=== PATIENT | male | born 1970 | race Caucasian/White ===

== ENCOUNTER 2018-06-26 07:59 | Inpatient (IN) | payer MEDICAID ==
[2018-06-26] VITALS (8 sets, daily range): BP systolic 118–140; BP diastolic 78–90
[~2018-06-26] VITALS: Ht 170.2 cm; Wt 72.6 kg
--- NOTE | 2018-06-26 08:00 | NUR ---
BIB RA 102; ABD PAIN X 30 MIN. NOTED ROSARIO, IN DISTRESS, PALE IN COLOR. MD AT BS FOR EVAL. IV ACCESS REPAIRER HAIRSPRING. BLOOD DRAWN FOR LABS. SAFETY AND COMFORT MEASURES PROVIDED. WILL MONITOR.
--- NOTE | 2018-06-26 08:05 | NUR ---
PT MEDICATED ORDERED.
[2018-06-26] MEDS ORDERED: KETOROLAC TROMETHAMINE 15 MG/ML VIAL ONE (08:06)
[2018-06-26] MEDS ORDERED: HYDROMORPHONE 1 MG/1 ML DISP.SYRIN ONE ×2 (08:06→08:20)
[2018-06-26] MEDS ORDERED: ONDANSETRON HCL/PF 4 MG/2 ML VIAL ONE (08:16)
--- NOTE | 2018-06-26 08:22 | NUR ---
PT TAKEN TO CT.
[2018-06-26 08:23] LABS: BASOPHILS # (AUTO) 0.1 /CMM (0.0-0.2); EOSINOPHILS % (AUTO) 6.4 % (0.0-6.0); HEMATOCRIT 49 % (39-51); HEMOGLOBIN 15.3 g/dL (13.5-17.5); LYMPHOCYTES # (AUTO) 3.3 /CMM (0.8-4.8); LYMPHOCYTES % (AUTO) 41.5 % (20.0-44.0); MEAN CORPUSCULAR HGB CONC 32 g/dl (31.0-36.0); MEAN CORPUSCULAR VOLUME 91 fL (80-96); MONOCYTES # (AUTO) 0.7 /CMM (0.1-1.30); MONOCYTES % (AUTO) 9.2 % (2.0-12.0); NEUTROPHILS # (AUTO) 3.3 /CMM (1.8-8.9); NEUTROPHILS % (AUTO) 41.9 % (43.0-81.0); PLATELET COUNT (AUTO) 298 /CMM (150-450); RDW COEFFICIENT OF VARIATION 12.9 (11.5-15.0); RED BLOOD CELL COUNT(AUTO) 5.36 MIL/uL (4.5-6.0); WHITE BLOOD COUNT (AUTO) 7.8 K/uL (4.3-11.0)
[2018-06-26] MEDS ORDERED: KETOROLAC TROMETHAMINE INJ 30 MG/ML VIAL IV ONE (08:30)
[2018-06-26] MEDS ORDERED: HYDROMORPHONE INJ 2 MG/ML DISP.SYRIN IV ONE (08:30)
[2018-06-26] MEDS ORDERED: ONDANSETRON HCL/PF 4 MG/2 ML VIAL IVP ONE (08:30)
[2018-06-26] MEDS ORDERED: HYDROMORPHONE INJ 0.5 MG/0.5 ML SYRINGE IV ONE ×2 (08:30→09:30)
[2018-06-26] MEDS ORDERED: IV NS 0.9% 1,000 ML BAG IV ONE (08:30)
[2018-06-26 08:34] LABS: CALCIUM, SERUM 8.6 mg/dL (8.5-10.1); CARBON DIOXIDE 24 mmol/L (21-32); CHLORIDE 106 mmol/L (98-107); CREATININE 1.1 mg/dL (0.6-1.3); GLUCOSE 199 mg/dL (74-106); POTASSIUM 3.9 mmol/L (3.5-5.1); SODIUM SERUM 141 mmol/L (136-145); UREA NITROGEN, BLOOD 17 mg/dL (7-18)
[2018-06-26 08:40] LABS: ALANINE AMINOTRANSFERASE 29 U/L (12-78); ALBUMIN 3.8 g/dL (3.4-5.0); ALKALINE PHOSPHATASE 92 U/L (46-116); ASPARTATE AMINOTRANSFERASE 17 U/L (15-37); BILIRUBIN,DIRECT 0.1 mg/dL (0.0-0.2); BILIRUBIN,TOTAL 0.5 mg/dL (0.2-1.0); INR 0.94 (0.87-1.13); LIPASE 1187 U/L (73-393); TOTAL PROTEIN, SERUM 7.3 g/dL (6.4-8.2)
[2018-06-26 08:42] LABS: TROPONIN I < 0.017 ng/mL (0.00-0.056)
[2018-06-26] MEDS ORDERED: HYDROMORPHONE INJ 2 MG/ML DISP.SYRIN ONE ×3 (09:08→15:08)
--- NOTE | 2018-06-26 09:08 | NUR ---
PAGED EPIC FOR PANEL
[2018-06-26] MEDS ORDERED: IV NS 0.9% 1,000 ML IV PRN (09:20)
[2018-06-26] MEDS ORDERED: HYDROMORPHONE INJ 2 MG/ML DISP.SYRIN IV PRN (09:30)
[2018-06-26] MEDS ORDERED: PIPERACILLIN /TAZOBACTAM 3.375 G in IV D5W 50 ML IV ONE (09:30)
[2018-06-26] MEDS ORDERED: MAG HYDROX/AL HYDROX/SIMETH 30 ML UDC PO PRN (09:30)
[2018-06-26] MEDS ORDERED: IV NS 0.9% 1,000 ML IV ONE ×2 (09:30)
[2018-06-26] MEDS ORDERED: ACETAMINOPHEN 325 MG TABLET PO PRN (09:30)
[2018-06-26] MEDS ORDERED: Z GUARD REMEDY 2 OZ OINT TP PRN (09:30)
[2018-06-26] MEDS ORDERED: HYDROCODONE/APAP 5/325MG 1 EACH TABLET PO PRN (09:30)
--- NOTE | 2018-06-26 09:39 | NUR ---
TELE 327
[2018-06-26] MEDS ORDERED: HYDROMORPHONE INJ 0.5 MG/0.5 ML SYRINGE IV PRN ×2 (10:00→10:30)
--- NOTE | 2018-06-26 10:00 | NUR ---
PT VERBALIZES UNDERSTANDING OF THE PROCEDURE, CONSENTS SIGNED FOR BLOOD TRANSFUSION AND APPENDECTOMY PROCEDURE.
--- NOTE | 2018-06-26 10:27 | NUR ---
PT TAKEN TO OR.
[2018-06-26] MEDS ORDERED: SUCCINYLCHOLINE CHLORIDE 20 MG/ML VIAL ONE (10:34)
[2018-06-26] MEDS ORDERED: ROCURONIUM BROMIDE 50 MG/5 ML ONE (10:34)
[2018-06-26] MEDS ORDERED: FENTANYL PF 100MCG/2ML AMPUL ONE (10:34)
--- NOTE | 2018-06-26 10:34 | NUR ---
REPORT GIVEN TO KY ASTUDILLO FOR CONTINUITY OF CARE
[2018-06-26] MEDS ORDERED: BUPIVACAINE MPF 0.5% W/EPI INJ 30 ML VIAL ONE (10:38)
[2018-06-26] MEDS ORDERED: ANESTHESIA TRAY IN PYXIS 1 EA TRAY MC ONE (10:38)
[2018-06-26] MEDS ORDERED: LIDOCAINE 1% INJ 50 ML MDV IJ ONE (10:38)
[2018-06-26] MEDS ORDERED: MORPHINE SULFATE INJ 2 MG/ML DISP.SYRIN IV PRN (11:30)
[2018-06-26] MEDS ORDERED: BACITRACIN 50000 UNITS/VIAL ONE (11:33)
--- NOTE | 2018-06-26 14:42 | NUR ---
ROD BUSTER HELPER ADMITTING NOTES PATIENT ADMITTED TO UNIT VIA [facility] AT 1600 FROM SURGERY S/P EXPLORE LAPAROSCOPY PARTIAL SIGMOID RESECTION AND COLOSTOMY BY DR MCNEAL. PT ACCOMPANIED BY HIS FRIEND. PT IS LETHARGIC BUT ABLE TO RESPONSE TO VERBAL STIMULI COHERENTLY, NO C/O PAIN AT THIS TIME. PT WITH DX OF PERFORATED APPENDIX AND FROM E.R. HE WAS SENT STRAIGHT TO SURGERY. PT ON 0N 02 VIA N./C @ 3LPM AT THIS TIME, BREATHING EVEN AND UNLABORED. V/S TAKEN AND RECORDED. SKIN ASSESSMENT DONE. PT PLACED ON TELE-MONITORING WITH READING OF SR WITH HR OF 88-95 NOTED. SURGICAL INCISIONS NOTED ON UPPER MID ABDOMEN AND UMBILICUS AREA. PT WITH 2 GENESIS DRAINS ON LEFT UPPER QUADRANT AND LOWER MID ABDOMEN WITH DRESSINGS INTACT, CLEAN AND DRY. SMALL AMOUNT OF SEROSANGUINEOUS DRAINAGE NOTED ON BOTH DRAINS. ABDOMEN SOFT AND NON-DISTENDED. PT WITH COLOSTOMY IN PLACE, NO OUTPUT NOTED AT THIS TIME. B/L LUNGS CLEAR ON AUSCULTATION. IV ACCESS ON LEFT AC g#18 INTACT AND PATENT, IVF OF NS BOLUS RUNNING AT THIS TIME. SAFETY MEASURES INITIATED, HOB ELEVATED. BED IN LOWEST LOCK POSITION WITH SIDE-RAILS UP X2. ALL MD POST OP MD ORDERS CARRIED OUT. WILL CONTINUE TO MONITOR PT ACCORDINGLY.
[2018-06-26] MEDS ORDERED: MEPERIDINE HCL/PF 100 MG/ML DISP.SYRIN ONE (14:43)
[2018-06-26] MEDS: DOCUSATE SODIUM 100 MG CAPSULE PO SCH (17:00)
[2018-06-26] MEDS: IV LR 1000 ML 1,000 ML IV PRN (17:27)
[2018-06-26] MEDS: ZOSYN IVPB 3.375 G in IV D5W 50ml IV SCH ×2 (18:01→23:14)
--- NOTE | 2018-06-26 18:43 | NUR ---
WIRE STITCHER MACHINE CLOSING NOTES PATIENT IN BED ASLEEP AT MODERATE HIGH BACKREST POSITION AT THIS TIME, EASILY AROUSABLE. ON 0N 02 VIA N./C @ 3LPM AT THIS TIME, BREATHING EVEN AND UNLABORED. ON TELE-MONITORING WITH CURRENT READING OF SR WITH HR OF 88-95. SURGICAL INCISIONS ON UPPER MID ABDOMEN AND UMBILICUS AREA INTACT AND CLEAN WITH NO ACTIVE BLEEDING NOTED. PT WITH 2 GENESIS DRAINS: LEFT UPPER QUADRANT #1 WITH 20ML OUTPUT AND LOWER MID ABDOMEN #2 WITH 15ML OUTPUT, BOTH WITH SEROSANGUINEOUS DRAINAGE. DRESSINGS TO BOTH GENESIS DRAINS C/D/I. PT WITH COLOSTOMY IN PLACE, NO OUTPUT NOTED AT THIS TIME. IV ACCESS ON LEFT AC g#18 INTACT AND PATENT, IVF OF LR @ 140ML /HR RUNNING AT THIS TIME X 48HRS THEN SWITCH TO D5 1/2 NS + 20 MEQ KCL @ 100ML/HR. ALL SAFETY MEASURES KEPT IN PLACE. BED IN LOWEST LOCK POSITION WITH SIDE-RAILS UP X 2. CALL LIGHT WITHIN REACH. WILL ENDORSE TO PERIPHERAL VASCULAR TECH NURSE FOR JAEL.
--- NOTE | 2018-06-26 19:30 | NUR ---
TELE/RN OPENING NOTES PT RECEIVED ASLEEP, OPENS EYES TO NAME/ TOUCH. ON 3L O2 VIA NC, BREATHING EVEN AND UNLABORED. NO C/O PAIN OR SOB AT THIS TIME. ON TELE MONITOR SHOWING SR 97. IV TO LAC PATENT AND INTACT RUNNING IVF ORDERED. DAVENPORT CATH DRAINING TO GRAVITY. BED IN LOW/LOCKED POSITION WITH CALL LIGHT IN REACH. BILATERAL UPPER SIDE RAILS IN PLACE. WILL CONTINUE TO MONITOR
[2018-06-26] MEDS: HYDROMORPHONE 1 MG/1 ML DISP.SYRIN IV PRN (23:06)
[2018-06-26] MEDS: ONDANSETRON HCL/PF 4 MG/2 ML VIAL IVP PRN (23:09)
--- NOTE | 2018-06-26 23:15 | NUR ---
TELE/RN NOTES EMPTIED 20ML FROM GENESIS DRAIN #1 AND 80ML FROM GENESIS DRAIN #2. SEROSANGUINOUS OUTPUT
--- NOTE | 2018-06-26 23:22 | NUR ---
TELE/RN NOTES PT C/O DULL PAIN TO ENTIRE ABDOMEN. REQUESTING PAIN MEDICATION. ADMINISTERED DILAUDID ORDERED. UPON ADMINISTRATION, PT C/O NAUSEA. ADMINISTERED PRN ZOFRAN WELL.
[2018-06-27] VITALS: BP_SYST 110; BP_SYST 132; BP_DIAS 65; BP_DIAS 72
[2018-06-27] MEDS: IV LR 1000 ML 1,000 ML IV PRN ×2 (01:23→09:21)
[2018-06-27 04:00] VITALS: BP 104/60
--- NOTE | 2018-06-27 04:50 | NUR ---
TELE/RN NOTES EMPTIED 40ML FROM GENESIS DRAIN #1 AND 90ML FROM GENESIS DRAIN #2
[2018-06-27] MEDS: ZOSYN IVPB 3.375 G in IV D5W 50ml IV SCH ×3 (06:11→18:10)
[2018-06-27] MEDS: ONDANSETRON HCL/PF 4 MG/2 ML VIAL IVP PRN ×3 (06:17→21:03)
[2018-06-27] MEDS: HYDROMORPHONE 1 MG/1 ML DISP.SYRIN IV PRN ×4 (06:19→21:12)
--- NOTE | 2018-06-27 06:57 | NUR ---
TELE/RN CLOSING NOTES PT RESTING WITH EYES CLOSED. A/OX3. REMAINS ON 3L O2 VIA NC, BREATHING EVEN AND UNLABORED. ABDOMINAL PAIN MANAGED WITH PRN DILAUDID. SOB AT THIS TIME. ON TELE MONITOR SHOWING SR 94. IV TO LAC PATENT AND INTACT RUNNING IVF ORDERED. DAVENPORT CATH DRAINING TO GRAVITY. GENESIS DRAIN #2 EMPTIED 50ML AT 0600. DRESSINGS TO ABDOMEN C/D/I. NO SIGNFICANT CHANGES OVERNIGHT. KEPT PT COMFORTABLE DURING SHIFT. ALL NEEDS MET. BED IN LOW/LOCKED POSITION WITH CALL LIGHT IN REACH. BILATERAL UPPER SIDE RAILS IN PLACE. WILL ENDORSE TO DAY SHIFT RN JAEL. Addendum: 06/27/18 at 0703 by GREG JOHNS RN TOTAL OUTPUT FROM GENESIS DRAIN #1 = 60 ML TOTAL OUTPUT FROM GENESIS DRAIN #2 = 220 ML
--- NOTE | 2018-06-27 07:15 | NUR ---
RN NOTES PT IS LAYING DOWN IN BED, RESTING COMFORTABLY. PT ON RA, RESPIRATIONS ARE EVEN AND UNLABORED. IV ON LAC INTACT AND RUNNING NS @ 140ML/HR. COLOSTOMY IS IN PLACE. GENESIS DRAINS IN PLACE AND DRAINING SEROSANGUINEOUS FLUID. DAVENPORT CATHETER IS IN PLACE AND DRAINING TO GRAVITY. TELE MONITOR SHOWS SINUS RHYTHM 95. NO SIGNS OF DISTRESS NOTED. SAFETY MEASURES ARE IN PLACE, CALL LIGHT IS IN REACH. WILL CONTINUE TO MONITOR.
[2018-06-27 08:00] VITALS: BP_SYST 107; BP_SYST 126; BP_DIAS 65; BP_DIAS 85
[2018-06-27] MEDS: DOCUSATE SODIUM 100 MG CAPSULE PO SCH ×2 (08:38→16:48)
[2018-06-27] MEDS: PANTOPRAZOLE 40 MG VIAL IV SCH (09:21)
[2018-06-27 09:58] LABS: ALBUMIN 2.3 g/dL (3.4-5.0); BILIRUBIN,TOTAL 1.1 mg/dL (0.2-1.0); CALCIUM, SERUM 7.4 mg/dL (8.5-10.1); CREATININE 1.1 mg/dL (0.6-1.3); MAGNESIUM 1.3 mg/dL (1.8-2.4); PHOSPHORUS 3.7 mg/dL (2.5-4.9); POTASSIUM 4.1 mmol/L (3.5-5.1); TOTAL PROTEIN, SERUM 5.3 g/dL (6.4-8.2)
[2018-06-27 10:03] LABS: HEMATOCRIT 49 % (39-51); HEMOGLOBIN 15.4 g/dL (13.5-17.5); LYMPHOCYTES # (AUTO) 0.5 /CMM (0.8-4.8); LYMPHOCYTES % (AUTO) 3.7 % (20.0-44.0); MEAN CORPUSCULAR HGB CONC 32 g/dl (31.0-36.0); MEAN CORPUSCULAR VOLUME 92 fL (80-96); MONOCYTES # (AUTO) 0.4 /CMM (0.1-1.30); MONOCYTES % (AUTO) 2.6 % (2.0-12.0); NEUTROPHILS % (AUTO) 93.7 % (43.0-81.0); PLATELET COUNT (AUTO) 179 /CMM (150-450); RDW COEFFICIENT OF VARIATION 13.1 (11.5-15.0); RED BLOOD CELL COUNT(AUTO) 5.28 MIL/uL (4.5-6.0); WHITE BLOOD COUNT (AUTO) 13.9 K/uL (4.3-11.0)
[2018-06-27 10:10] LABS: THYROID STIMULATING HORMONE 1.087 uIU/mL (0.358-3.74)
[2018-06-27] MEDS ORDERED: FEE PK DOSING 1 MIN EA MC ONE (11:38)
--- NOTE | 2018-06-27 12:00 | NUR ---
RN NOTES BLOOD CULTURE RESULTS SHOW GRAM POSITIVE COCCI IN CHAINS. PABLITO HORAN NP MADE AWARE AND ORDERED CONSULT FOR ID.
[2018-06-27 12:08] LABS: BAND % (MANUAL) 37 % (0.0-5.0); LYMPHOCYTES % (MANUAL) 8 % (16-48); METAMYELOCYTES % 1 % (0-0); MONOCYTES % (MANUAL) 4 % (0-11.0); MYELOCYTES % 3 % (0-0); NEUTROPHILS % (MANUAL) 47 (42-76)
[2018-06-27] MEDS: Magnesium 1GM/D5W 100ML PREMIX 100 ML IV SCH ×4 (12:12→16:48)
[2018-06-27] MEDS: VANCOMYCIN 0.75 GM in IV D5W 250 ML IV SCH ×2 (14:33→21:14)
[2018-06-27 16:00] VITALS: BP 120/72
--- NOTE | 2018-06-27 18:58 | NUR ---
RN NOTES PT IS LAYING DOWN IN BED, RESTING COMFORTABLY. PT ON 3L O2, RESPIRATIONS ARE EVEN AND UNLABORED. IV ON LAC INTACT AND PATENT, RUNNING LR @ 140ML/HR. ALL MEDS WERE GIVEN ORDERED AND PT NEEDS MET. GENESIS DRAINS IN PLACE AND DRAINING SEROSANGUINEOUS FLUID. COLOSTOMY IN PLACE, SITE IS CLEAN AND STOMA IS PINK AND SHINY. DAVENPORT CATHETER IS IN PLACE AND DRAINING TO GRAVITY. NO SIGNS OF DISTRESS NOTED. SAFETY MEASURES ARE IN PLACE, CALL LIGHT IS IN REACH. WILL ENDORSE TO MIRROR SPECIALIST RN FOR CONTINUITY OF CARE.
--- NOTE | 2018-06-27 19:40 | NUR ---
RN OPENING NOTES RECEIVED REPORT FROM ALEJANDRA DAVIS. FOUND Pt AWAKE, RESTING IN BED. NO S/S OF ACUTE DISTRESS OR SEVERE SOB NOTED. Pt IS A/OX3, VERBAL, ABLE TO MAKE NEEDS KNOWN. ON TELE MONITOR, HR 96. GENESIS DRAIN #1 & GENESIS DRAIN #[address] AND INTACT, NO SIGNS OF BLEEDING AROUND SURGICAL WOUND SITE. COLOSTOMY BAG IN PLACE. DAVENPORT CATHETER IN PLACE DRAINING WELL. IV ACCESS ON LAC #18G, IVF LR @140ML/HR, INFUSING WELL. STILL NPO PER SURGERY. SAFETY MEASURES IN PLACE. BED LOW, LOCKED, HOB ELEVATED, SIDE RAILS UP, CALL LIGHT AND BEDSIDE TABLE WITHIN REACH. WILL CONTINUE TO MONITOR Pt THROUGHOUT THE NIGHT FOR SAFETY.
[2018-06-27 20:00] VITALS: BP 138/86
[2018-06-28] VITALS: BP 135/82
[2018-06-28] MEDS: ZOSYN IVPB 3.375 G in IV D5W 50ml IV SCH ×4 (00:42→17:35)
--- NOTE | 2018-06-28 00:43 | NUR ---
RN NOTES Covering for WILDA Lomeli who is on break. Zosyn 3.375g given as ordered.
[2018-06-28] MEDS: IV LR 1000 ML 1,000 ML IV PRN ×2 (00:51→12:45)
[2018-06-28] MEDS: HYDROMORPHONE 1 MG/1 ML DISP.SYRIN IV PRN ×5 (02:09→20:45)
[2018-06-28 04:00] VITALS: BP 134/85
[2018-06-28] MEDS: VANCOMYCIN 0.75 GM in IV D5W 250 ML IV SCH (04:44)
[2018-06-28 06:37] LABS: HEMATOCRIT 46 % (39-51); HEMOGLOBIN 14.8 g/dL (13.5-17.5); LYMPHOCYTES # (AUTO) 0.6 /CMM (0.8-4.8); LYMPHOCYTES % (AUTO) 4.5 % (20.0-44.0); MEAN CORPUSCULAR HGB CONC 33 g/dl (31.0-36.0); MEAN CORPUSCULAR VOLUME 91 fL (80-96); MONOCYTES # (AUTO) 0.2 /CMM (0.1-1.30); MONOCYTES % (AUTO) 1.2 % (2.0-12.0); NEUTROPHILS # (AUTO) 12.9 /CMM (1.8-8.9); NEUTROPHILS % (AUTO) 94.3 % (43.0-81.0); PLATELET COUNT (AUTO) 151 /CMM (150-450); RDW COEFFICIENT OF VARIATION 13.3 (11.5-15.0); RED BLOOD CELL COUNT(AUTO) 4.98 MIL/uL (4.5-6.0); WHITE BLOOD COUNT (AUTO) 13.6 K/uL (4.3-11.0)
[2018-06-28] MEDS: ONDANSETRON HCL/PF 4 MG/2 ML VIAL IVP PRN ×3 (06:40→20:47)
--- NOTE | 2018-06-28 06:45 | NUR ---
RN CLOSING NOTES NO SIGNIFICANT CHANGES IN Pt's CONDITION. Pt REMAINS STABLE AT THIS TIME. NO S/S OF ACUTE DISTRESS OR SOB NOTED DURING THE NIGHT. ALL NEEDS MET AND ATTENDED. RESPIRATIONS EVEN AND UNLABORED WITH EQUAL CHEST RISE AND FALL. TELE READING SR 96. SAFETY MEASURES IN PLACE. BED LOW, LOCKED, HOB ELEVATED, SIDE RAILS UP, CALL LIGHT AND BEDSIDE TABLE WITHIN REACH. WILL ENDORSE TO DAYSHIFT RN FOR Pt's JAEL.
[2018-06-28 06:50] LABS: APPEARANCE,URINE CLEAR (CLEAR); BILIRUBIN,URINE NEGATIVE (NEGATIVE); BLOOD, URINE 1+ Ery/uL (NEGATIVE); COLOR,URINE YELLOW (YELLOW); KETONES,URINE TRACE (NEGATIVE); LEUKOCYTE ESTERASE ,URINE NEGATIVE (NEGATIVE); NITRITE, URINE NEGATIVE (NEGATIVE); PROTEIN,URINE 1+ mg/dl (NEGATIVE); UGLUCOSE NEGATIVE (NEGATIVE)
[2018-06-28 06:51] LABS: ALBUMIN 2.2 g/dL (3.4-5.0); BILIRUBIN,TOTAL 0.8 mg/dL (0.2-1.0); MAGNESIUM 2.3 mg/dL (1.8-2.4); POTASSIUM 3.9 mmol/L (3.5-5.1); TOTAL PROTEIN, SERUM 5.4 g/dL (6.4-8.2)
[2018-06-28 07:09] LABS: BACTERIA,URINE Rare /HPF (None Seen); SQUAMOUS EPITHELIAL CELL,UR None Seen /HPF (None Seen); WBC,URINE NONE SEEN /HPF (0-3)
--- NOTE | 2018-06-28 07:15 | NUR ---
RN NOTES PATIENT A/OX4, DENIES PAIN AT THIS TIME. BREATHING EVEN AND UNLABORED, NO SOB NOTED, KEPT COMFORTABLE, GENESIS DRAINS PATENT AND DRAINING WELL. COLOSTOMY EMPTY. NEEDS ATTENDED AND MET, CALL LIGHT WITHIN REACH, WILL CONTINUE TO MONITOR.
[2018-06-28 07:50] LABS: BAND % (MANUAL) 33 % (0.0-5.0); LYMPHOCYTES % (MANUAL) 2 % (16-48); MONOCYTES % (MANUAL) 3 % (0-11.0); NEUTROPHILS % (MANUAL) 62 (42-76)
[2018-06-28 08:00] VITALS: BP 132/91
[2018-06-28] MEDS: DOCUSATE SODIUM 100 MG CAPSULE PO SCH ×2 (08:58→16:39)
[2018-06-28] MEDS: PANTOPRAZOLE 40 MG VIAL IV SCH (09:23)
[2018-06-28] MEDS: VANCOMYCIN 1 GM in IV D5W 250 ML IV SCH ×2 (14:36→22:21)
[2018-06-28 16:00] VITALS: BP 149/92
[2018-06-28] MEDS: IV D5/0.45 NACL W/20 MEQ KCL 1L IV PRN ×2 (17:50)
--- NOTE | 2018-06-28 18:25 | NUR ---
RN NOTES PT AWAKE, VERBALLY RESPONSIVE, ABLE TO MAKE NEEDS KNOWN, RESTING IN BED. NO S/S OF ACUTE DISTRESS OR SOB NOTED. ON TELE MONITOR WITH HR 96. GENEISS DRAIN #1 & GENESIS DRAIN #[address] AND INTACT, NO SIGNS OF BLEEDING AROUND SURGICAL WOUND SITE. COLOSTOMY BAG IN PLACE. DAVENPORT CATHETER IN PLACE DRAINING WELL. IV ACCESS ON TY 22G, INF INFUSING AND TOLERATING WELL. STILL NPO AT THIS TIME. PATIENT WAS ABLE TO AMBULATE ONCE FOR A FEW FEET, BOWEL SOUNDS PRESENT, SAFETY MEASURES IN PLACE. BED LOW, LOCKED, HOB ELEVATED, SIDE RAILS UP, CALL LIGHT AND BEDSIDE TABLE WITHIN REACH. GIRLFRIEND AT BEDSIDE, WILL ENDORSE TO AMBULANCE DISPATCHER FOR JAEL.
[2018-06-28 20:00] VITALS: BP 140/88
--- NOTE | 2018-06-28 20:00 | NUR ---
BAR ROLLER OPENING NOTE Assignment change, received report from WILDA Dennis. Patient was seen lying in bed AAOx4, breathing on RA with no SOB, and no signs of acute distress. Patient reports 3/10 abdominal pain and currently does not need any pain relief measures. Two midline abdominal incisions are noted, both covered with bandages that are clean, dry, and intact. Two GENESIS drains are draining serosanguinous fluid (drain #two with 20 ml output, drain #one with scant output). Colostomy is on the left side, stoma is beefy red. Iqbal cath is draining clear, yellow urine. 20 mEq of Potassium Chloride in D5 1/2NS is running at 100ml/hr through the left upper arm IV with no signs of leaking or infiltration. Bed is low/locked, two side rails up, and call aranda within reach. Will continue to monitor.
--- NOTE | 2018-06-28 20:47 | NUR ---
PLANT OPERATIONS MANAGER NOTE - Dilaudid, Zofran Patient reported 8/10 abdominal pain (s/p exploratory laparotomy with colon resection) and requested Dilaudid for pain relief, along with Zofran since he experiences nausea with opioids. 1mg IV Dilaudid was given along with 4mg IV Zofran per orders. Will continue to monitor.
[2018-06-29] VITALS (8 sets, daily range): BP systolic 126–149; BP diastolic 81–97
[2018-06-29] MEDS: ZOSYN IVPB 3.375 G in IV D5W 50ml IV SCH ×5 (00:13→23:26)
[2018-06-29] MEDS: HYDROMORPHONE 1 MG/1 ML DISP.SYRIN IV PRN ×5 (02:34→23:41)
--- NOTE | 2018-06-29 02:35 | NUR ---
INFORMATION SECURITY NOTE - Dilaudid Patient requested pain medication for 8 abdominal pain. 1mg IV Dilaudid administered per orders for prn pain relief. Patient states that previous dose reduced pain to tolerable level at 3/10, but pain returned. Will continue to monitor.
[2018-06-29] MEDS: ONDANSETRON HCL/PF 4 MG/2 ML VIAL IVP PRN ×3 (03:43→23:26)
--- NOTE | 2018-06-29 03:43 | NUR ---
STAFF ANTISUBMARINE OFFICER NOTE - Zofran Patient complained of nausea and requested Zofran. 4mg IV Zofran administered per orders.
[2018-06-29] MEDS: IV D5/0.45 NACL W/20 MEQ KCL 1L IV PRN ×4 (06:19→21:42)
[2018-06-29] MEDS: VANCOMYCIN 1 GM in IV D5W 250 ML IV SCH ×3 (06:19→21:50)
[2018-06-29 06:58] LABS: EOSINOPHILS % (AUTO) 0.1 % (0.0-6.0); HEMATOCRIT 43 % (39-51); HEMOGLOBIN 13.8 g/dL (13.5-17.5); LYMPHOCYTES # (AUTO) 0.6 /CMM (0.8-4.8); LYMPHOCYTES % (AUTO) 4.2 % (20.0-44.0); MEAN CORPUSCULAR HGB CONC 32 g/dl (31.0-36.0); MEAN CORPUSCULAR VOLUME 91 fL (80-96); MONOCYTES # (AUTO) 0.6 /CMM (0.1-1.30); MONOCYTES % (AUTO) 4.3 % (2.0-12.0); NEUTROPHILS # (AUTO) 13.7 /CMM (1.8-8.9); NEUTROPHILS % (AUTO) 91.4 % (43.0-81.0); PLATELET COUNT (AUTO) 160 /CMM (150-450); RDW COEFFICIENT OF VARIATION 13.1 (11.5-15.0)
[2018-06-29 07:05] LABS: CREATININE 0.9 mg/dL (0.6-1.3); MAGNESIUM 2.1 mg/dL (1.8-2.4); PHOSPHORUS 1.4 mg/dL (2.5-4.9); POTASSIUM 3.7 mmol/L (3.5-5.1)
--- NOTE | 2018-06-29 07:30 | NUR ---
WATER TREATMENT PLANT REPAIRER OPENING NOTES RECEIVED PATIENT IN STABLE CONDITION. IN NO APPARENT DISTRESS. BEDSIDE RAILS ARE UPX2. BED IS LOCKED AND LOWERED. CALL LIGHT IS WITHIN REACH. IV LINE IS INTACT AND PATENT. WILL CONTINUE TO MONITOR PATIENT.
--- NOTE | 2018-06-29 07:32 | NUR ---
SENIOR ENGINEER NOTE - Dilaudid Patient reported 8/10 abdominal pain and requested pain medication. 1mg IV Dilaudid administered per orders for prn pain relief.
--- NOTE | 2018-06-29 07:45 | NUR ---
CYBER SECURITY ANALYST CLOSING NOTE Patient AAOx4, breathing with 2L NC with no SOB, and no signs of acute distress. Vitals WNL. Patient slept well overnight with no complications. Pain has been well managed with IV Dilaudid. 20mEq KCl in D5 1/2NS is running through the TY IV with no signs of leaking or infiltration. Two JPs are draining serosanguineous fluid. Colostomy has scant output. Bed is low/locked, two side rails up, and call aranda within reach. All patient needs attended to this shift. Patient care endorsed to day shift nurse.
[2018-06-29] MEDS: DOCUSATE SODIUM 100 MG CAPSULE PO SCH ×2 (08:23→17:46)
[2018-06-29] MEDS: PANTOPRAZOLE 40 MG VIAL IV SCH (08:29)
--- NOTE | 2018-06-29 09:30 | NUR ---
SPOKE TO DR. MCNEAL. PER DR. MCNEAL IT IS OK TO ADVANCE DIET TO CLEAR LIQUIDS AND CONTINUE ADVANCING TOLERATED.
[2018-06-29] MEDS ORDERED: NEUTRA PHOS 1 POWD.PACKET PO ONE (12:00)
[2018-06-29] MEDS: HYDROCODONE/APAP 5/325MG 1 EACH TABLET PO PRN (12:16)
--- NOTE | 2018-06-29 18:33 | NUR ---
MS RN CLOSING NOTES PATIENT IS IN STABLE CONDITION. IN NO APPARENT DISTRESS. BEDSIDE RAILS ARE UPX2. BED IS LOCKED AND LOWERED. ALL NEEDS WERE MET. IV LINE IS INTACT AND PATENT. WILL ENDORSE CARE TO PACKING AND WRAPPING SUPERVISOR NURSE FOR JAEL.
--- NOTE | 2018-06-29 19:30 | NUR ---
MS/RN OPENING NOTES PT RECEIVED AWAKE, RESTING IN BED. VISITOR AT BEDSIDE. ON 2L O2 VIA NC, BREATHING EVEN AND UNLABORED. DENIES SOB. NOTES PAIN 7-06/04, JUST RECEIVED IV PAIN MEDICATION. INCISION SITES CLEAN AND DRY, SALMA. GENESIS DRAINS IN PLACE, DRESSING C/D/I, SEROSANGUINOUS OUTPUT NOTED. IV TO TY PATENT AND INTACT. BED IN LOW/LOCKED POSITION, CALL LIGHT IN REACH. BILATERAL UPPER SIDE RAILS UP IN PLACE. WILL CONTINUE TO MONITOR
[2018-06-30] MEDS: HYDROMORPHONE 1 MG/1 ML DISP.SYRIN IV PRN ×5 (03:33→23:30)
--- NOTE | 2018-06-30 04:08 | NUR ---
MS/RN NOTES EMPTIED 50ML FROM GENESIS DRAIN #1 100ML FROM GENESIS DRAIN #2
[2018-06-30] MEDS: ZOSYN IVPB 3.375 G in IV D5W 50ml IV SCH ×4 (05:54→23:30)
--- NOTE | 2018-06-30 06:34 | NUR ---
TELE/RN NOTES EMPTIED 50ML FROM GENESIS #2. NO OUTPUT FROM GENESIS #1
[2018-06-30] MEDS: VANCOMYCIN 1 GM in IV D5W 250 ML IV SCH (06:43)
--- NOTE | 2018-06-30 07:06 | NUR ---
TELE/RN CLOSING NOTES PT RESTING IN BED WITH EYES CLOSED. ON 2L O2 VIA NC, BREATHING EVEN AND UNLABORED. NO SOB NOTED. PAIN MANAGED THROUGHOUT SHIFT WITH PRN DILAUDID. PER PT, NORCO IS INEFFECTIVE. NO OUTPUT FROM COLOSTOMY NOTED. GENESIS DRAIN #1 WITH 50ML TOTAL OUTPUT. GENESIS DRAIN #2 WITH 150ML TOTAL OUTPUT. SURGICAL DRESSINGS C/D/I. NO BLEEDING NOTED. IV TO LFA PATENT AND INTACT RUNNING IVF ORDERED. KEPT PT COMFORTABLE POSSIBLE. ALL NEEDS MET. ENCOURAGED PT TO TURN/REPOSITION BUT PT REFUSED. EDUCATED REGARDING RISKS/BENEFITS OF TURNING IN BED, VERBALIZED UNDERSTANDING BUT STILL REFUSING. REFUSED LINEN CHANGE. OTHERWISE NO SIGNIFICANT CHANGES OVERNIGHT. BED REMAINS IN LOW/LOCKED POSITION WITH CALL LIGHT IN REACH AND BILATERAL UPPER RAILS IN PLACE. WILL ENDORSE TO DAY SHIFT RN JAEL.
[2018-06-30 07:22] LABS: HEMATOCRIT 44 % (39-51); HEMOGLOBIN 14.2 g/dL (13.5-17.5); LYMPHOCYTES # (AUTO) 0.4 /CMM (0.8-4.8); LYMPHOCYTES % (AUTO) 3.2 % (20.0-44.0); MEAN CORPUSCULAR HGB CONC 32 g/dl (31.0-36.0); MEAN CORPUSCULAR VOLUME 91 fL (80-96); MONOCYTES # (AUTO) 0.9 /CMM (0.1-1.30); MONOCYTES % (AUTO) 6.8 % (2.0-12.0); NEUTROPHILS # (AUTO) 12.5 /CMM (1.8-8.9); PLATELET COUNT (AUTO) 166 /CMM (150-450); RDW COEFFICIENT OF VARIATION 13.5 (11.5-15.0); RED BLOOD CELL COUNT(AUTO) 4.87 MIL/uL (4.5-6.0); WHITE BLOOD COUNT (AUTO) 13.9 K/uL (4.3-11.0)
--- NOTE | 2018-06-30 07:30 | NUR ---
RN INITIAL NOTS PT IN BED, RESTING COMFORTABLY. NO SIGNS OF LABORED BREATHING. BOTH GENESIS DRAINAGE SHOWS LIGHT RED ORANGE COLOR DRAINAGE. SURGICAL SITES ARE INTACT, NO SIGNS OF BLEEDING AND INFECTION. IV ACCESS ON THE LEFT FOREARM 22G IS PATENT AND INTACT. PT SHOWS NO SIGN OF PAIN OR UNCOMFORTABLENESS. BED ON LOW, CALL LIGHT WITHIN REACH. WILL CONTINUE TO MONITOR AND ASSESS.
[2018-06-30 07:36] LABS: CALCIUM, SERUM 7.9 mg/dL (8.5-10.1); CREATININE 0.9 mg/dL (0.6-1.3); MAGNESIUM 2.1 mg/dL (1.8-2.4); PHOSPHORUS 2.5 mg/dL (2.5-4.9); POTASSIUM 3.7 mmol/L (3.5-5.1)
[2018-06-30 08:00] VITALS: BP 139/91
[2018-06-30] MEDS: PANTOPRAZOLE 40 MG VIAL IV SCH (09:04)
[2018-06-30] MEDS: DOCUSATE SODIUM 100 MG CAPSULE PO SCH ×2 (09:05→17:39)
[2018-06-30] MEDS: ONDANSETRON HCL/PF 4 MG/2 ML VIAL IVP PRN ×2 (09:15→18:36)
[2018-06-30] MEDS: IV D5/0.45 NACL W/20 MEQ KCL 1L IV PRN ×4 (09:35→20:13)
[2018-06-30 10:15] LABS: BAND % (MANUAL) 5 % (0.0-5.0); LYMPHOCYTES % (MANUAL) 4 % (16-48); MONOCYTES % (MANUAL) 7 % (0-11.0); NEUTROPHILS % (MANUAL) 84 (42-76)
--- NOTE | 2018-06-30 13:00 | NUR ---
RN NOTES/ COLOSTOMY TEACHING PT COLOSTOMY WAS CHANGED AND DEMONSTRATED HOW TO PERFORM THE COLOSTOMY BAG CHANGE. PT SHOWS INTEREST, WATCHING THE COLOSTOMY BAG CHANGE. HE SAID THAT "BEFORE I LEAVE, I WILL TRY IT MYSELF." EDUCATIONAL INSTRUCTION ABOUT COLOSTOMY BAG CHANGE WAS GIVEN TO THE PATIENT.
[2018-06-30 16:00] VITALS: BP 154/98
--- NOTE | 2018-06-30 19:00 | NUR ---
RN CLOSING NOTES PT IS SITTING IN BED, AWAKE AND ALERT. PT IN O2 VIA NASAL CANNULA 3L, NO SIGNS OF LABORED BREATHING. IV ACCESS ON THE LEFT FOREARM 22G PATENT AND INTACT. SURGICAL INCISION ON THE UPPER ABDOMEN IS INTACT, NO SIGNS OF INFECTION. GENESIS DRAINAGE DRAINED WITH GENESIS #1 75ML, GENESIS #2 270 ML, WITH SEROSANGENOUS DRAINAGE. COLOSTOMY INTACT, PATENT. PAIN MEDICATION ADMINSTERED PRN ORDERED. SAFETY MEASURES IN PLACE, CALL LIGHT WITHIN REACH. ENDORSED CONTINUITY OF CARE TO THE NEXT SHIFT NURSE
--- NOTE | 2018-06-30 19:28 | NUR ---
RN INITIAL NOTES Received patient on bed, alert, oriented x 4. Family at bedside. Breathing even and unlabored. Not in any distress. On O2 3Lpm arlen NC. No complaints as of this time, just requesting to close the door everytime I leave the room. GENESIS drain in place, serosanguinous drainage noted. Surgical sites are intact, no signs of bleeding and infection. Peripheral IV infusing well. Patient stable as endorsed by the morning shift RN. Call aranda within reach. Bed in low, locked position. Will monitor accordingly
[2018-06-30 20:00] VITALS: BP 141/98
[2018-06-30 20:31] VITALS: BP 141/98
--- NOTE | 2018-06-30 23:30 | NUR ---
RN NOTES Patient reported 6/10 abdominal pain and requested pain medication. 1mg IV Dilaudid administered per orders for prn pain relief.
[2018-07-01] MEDS: ONDANSETRON HCL/PF 4 MG/2 ML VIAL IVP PRN ×2 (02:28→13:57)
[2018-07-01] MEDS: HYDROMORPHONE 1 MG/1 ML DISP.SYRIN IV PRN ×7 (02:28→22:51)
--- NOTE | 2018-07-01 02:30 | NUR ---
RN NOTES Patient reported 6/10 abdominal pain and requested Dilaudid for pain relief. Patient also complaining of nausea. 1mg IV Dilaudid was given along with 4mg IV Zofran per orders. Will continue to monitor.
[2018-07-01] MEDS: ZOSYN IVPB 3.375 G in IV D5W 50ml IV SCH ×3 (05:23→17:34)
[2018-07-01] MEDS: IV D5/0.45 NACL W/20 MEQ KCL 1L IV PRN ×4 (06:13→17:34)
--- NOTE | 2018-07-01 06:39 | NUR ---
RN CLOSING NOTES Patient in bed, alert, oriented x 4. Breathing even and unlabored. Peripheral IV infusing at 100mL/hr. Colostomy bag in place. Drained 100mL of serousanguinous fluid on GENESIS drain#1 and 100mL of fluid in GENESIS drain #2. Patient able to make needs known. All needs attended to. All due medications given as ordered. Call aranda within reach. Bed in low, locked position. Will endorse JEAL to oncoming RN.
--- NOTE | 2018-07-01 07:00 | NUR ---
RN INITIAL NOTES PT AWAKE AND ALERT IN BED, SEMI-FOWLERS. NO SIGNS OF LABORED BREATHING. DENIES ANY PAIN. COLOSTOMY BAG IS PATENT AND INTACT. BOTH GENESIS DRAINAGE PATENT AND INTACT, DRAINING WITH SEROSANGENOUS FLUID. SURGICAL INCISION IN THE ABDOMEN ARE INTACT, OPEN TO AIR. NO SIGNS OF NEW INFECTION. IV ACCESS ON THE LEFT FOREARM 22G IS PATENT AND INTACT. SAFETY MEASURES PLACED, CALL LIGHT WITHIN REACH. WILL CONTINUE TO MONITOR
[2018-07-01 07:16] LABS: CREATININE 0.8 mg/dL (0.6-1.3); PHOSPHORUS 3.3 mg/dL (2.5-4.9); POTASSIUM 3.8 mmol/L (3.5-5.1)
[2018-07-01 08:00] VITALS: BP 161/96
[2018-07-01] MEDS: DOCUSATE SODIUM 100 MG CAPSULE PO SCH ×2 (08:47→17:34)
[2018-07-01] MEDS: PANTOPRAZOLE 40 MG VIAL IV SCH (08:47)
[2018-07-01 16:00] VITALS: BP 144/98
--- NOTE | 2018-07-01 19:00 | NUR ---
RN CLOSING NOTES PT IS AWAKE AND ALERT, SITTING IN BED. NO SIGNS OF LABORED BREATHING. IV ACCESS ON THE LEFT FOREARM 22G PATENT AND INTACT, D5 1/2 NS WITH 20 MEQ KCL RUNNING. COLOSTOMY BAG IS INTACT, NO BOWEL MOVEMENT. BOTH GENESIS DRAINAGE ARE DRAINING WITH SEROSANGUINEOUS DRAINAGE. GENESIS #1 75ML; GENESIS #2 150ML. PT COMPLAINS OF PAIN BUT TOLERABLE, RECEIVED PAIN RELIEF AT 1743. SAFETY MEASURES PLACED, CALL LIGHT WITHIN REACH. DENIES ANY PAIN AT THIS TIME. ENDORSED CONTINUITY OF CARE TO THE NEXT SHIFT NURSE.
--- NOTE | 2018-07-01 19:43 | NUR ---
RN NOTE; RECEIVED PT IN BED W/ FAMILY AT THE BED SIDE. BREATHING EVENLY. NO SOB. NAD. W/ C/O ABD PAIN DILAUDID GIVEN ORDERED PER PT'S REQUEST. COLOSTOMY BAG IN PLACE EMPTY W/ NO BM OR GAS. GENESIS SITES IN PLACE DRAINING SERO-SANG FLUID. ON ONGOING IVF HYDRATION. IV SITE INTACT AND PATENT W/ NO S/S OF INFECTION OR INFILTRATION. PT WAS ENCOURAGED TO GET OOB. SIT ON A CHAIR OR AMBULATE TOLERATED. ALSO PO INTAKE WAS ENCOURAGE DIET ORDER. NEEDS ATTENDED. ASSISTED W/ ADLS .CALL LIGHT WITHIN REACH, WILL CONT TO MONITOR.
[2018-07-01 20:00] VITALS: BP_SYST 143; BP_DIAS 104; BP_DIAS 64
[2018-07-01] MEDS: MAGNESIUM HYDROXIDE 30 ML UDC PO PRN (21:01)
--- NOTE | 2018-07-01 21:05 | NUR ---
DR MCNEAL ON THE FLOOR MADE AWARE OF THE NO BM AND EMPTY COLOSTOMY BAG. MD RECOMMENDING MOM ORDERED X ONE NOW AND ANOTHER DOSE IN 6 HRS. PT MADE AWARE AND THE FIRST DOSE WAS GIVEN.
--- NOTE | 2018-07-01 21:37 | NUR ---
PT WAS SEEN AND EXAMINED BY DR. MCNEAL. PAIN AND BOWEL MANAGEMENT WERE EXPLAINED TO THE PT BY MD. MD SUGGESTING TO TAKE ANOTHER DOSE OF MOM IN AM AND A THIRD DOSE TWELVE HOURS AFTER. ALSO PER MD TO ORDER AN ABD/ PELVIC CT W/ IV CONTRAST IF WBC INCREASES BY 2 POINTS IN AM.
--- NOTE | 2018-07-01 22:51 | NUR ---
DILAUDID GIVEN ORDERED FOR C/O PAIN. NORCO OFFERED AND ENCOURAGED BUT PT STATED HE WILL TRY THAT NEXT TIME HE IS IN PLAIN. WILL CONT TO MONITOR , PT EDUCATION REGARDING EMPTING GENESIS BAG WAS GIVEN WITH UNDERSTANDING.
[2018-07-02] MEDS: ZOSYN IVPB 3.375 G in IV D5W 50ml IV SCH ×5 (00:26→23:52)
[2018-07-02] MEDS: HYDROCODONE/APAP 5/325MG 1 EACH TABLET PO PRN ×4 (00:55→21:45)
[2018-07-02] MEDS: HYDROMORPHONE 1 MG/1 ML DISP.SYRIN IV PRN ×3 (02:13→13:14)
--- NOTE | 2018-07-02 02:13 | NUR ---
DILAUDID GIVEN ORDERED FOR C/O PAIN. WILL CONT TO MONITOR
[2018-07-02] MEDS: MAGNESIUM HYDROXIDE 30 ML UDC PO PRN (04:15)
--- NOTE | 2018-07-02 04:15 | NUR ---
MOM GIVEN PER DOCTOR FREDIS'S RECOMMENDATION AND PT'S REQUEST. PER MD TO REPEAT THE MOM DOSE IN [address] THE ORDER.
[2018-07-02] MEDS: IV D5/0.45 NACL W/20 MEQ KCL 1L IV PRN ×4 (04:29→16:10)
--- NOTE | 2018-07-02 04:55 | NUR ---
DILAUDID GIVEN ORDERED FOR C/O PAIN. WILL CONT TO MONITOR
[2018-07-02 07:03] LABS: EOSINOPHILS % (AUTO) 1.8 % (0.0-6.0); HEMATOCRIT 43 % (39-51); HEMOGLOBIN 13.9 g/dL (13.5-17.5); LYMPHOCYTES % (AUTO) 9.3 % (20.0-44.0); MEAN CORPUSCULAR HGB CONC 33 g/dl (31.0-36.0); MEAN CORPUSCULAR VOLUME 90 fL (80-96); MONOCYTES # (AUTO) 1.5 /CMM (0.1-1.30); MONOCYTES % (AUTO) 14.7 % (2.0-12.0); NEUTROPHILS # (AUTO) 7.7 /CMM (1.8-8.9); NEUTROPHILS % (AUTO) 74.2 % (43.0-81.0); PLATELET COUNT (AUTO) 217 /CMM (150-450); RDW COEFFICIENT OF VARIATION 13.5 (11.5-15.0); RED BLOOD CELL COUNT(AUTO) 4.75 MIL/uL (4.5-6.0); WHITE BLOOD COUNT (AUTO) 10.4 K/uL (4.3-11.0)
--- NOTE | 2018-07-02 07:14 | NUR ---
PT IN BED AWAKE AND ALERT. BREATHING EVENLY. NO SOB. NO ACUTE EVENT DURING THE NIGHT. PT WAS STRONGLY ENCOURAGED TO AMBULATE AND BE ACTIVE. ASSISTED PT TO THE BATHROOM AND ORAL CARE . ALSO ENCOURAGE PT TO USE THE INCENTIVE SPIROMETER, ON ONGOING IVF HYDRATION. IV SITE INTACT AND PATENT. NO C/O PAIN OR DISCOMFORT AT THIS TIME. NEEDS ATTENDED . CALL LIGHT WITHIN REACH. WILL CONT TO MONITOR AND WILL ENDORSE TO AM SHIFT FOR JAEL.
[2018-07-02 07:31] LABS: CALCIUM, SERUM 7.9 mg/dL (8.5-10.1); CREATININE 0.7 mg/dL (0.6-1.3); POTASSIUM 3.8 mmol/L (3.5-5.1)
--- NOTE | 2018-07-02 07:41 | NUR ---
MS RN OPENING NOTES RECEIVED PT LAYING IN BED WITH HOB ELEVATED. PT IS AWAKE, ALERT AND RESPONSIVE. RESPIRATIONS ARE EVEN AND UNLABORED, NOT IN ANY ACUTE DISTRESS NOTED. PT C/O PAIN 4/10 BUT IS TOLERABLE. NO C/O SOB, N/V. IV ACCESS TO LFA G22, NO FILTRATION NOTED. DRESSING KEPT CLEAN AND DRY. IV FLUIDS INFUSING AT 100ML/HR. SAFETY MEASURES ARE IN PLACE. BED IS AT ITS LOWEST AND LOCKED POSITION. CALL LIGHT IS LEFT WITHIN REACH. ENCOURAGED PT TO USE INCENTIVE SPIROMETER AND ABLE TO PERFORM RETURN DEMONSTRATION. WILL CONTINUE TO MONITOR THROUGHOUT SHIFT FOR CONTINUITY OF CARE.
[2018-07-02 08:00] VITALS: BP_SYST 151; BP_SYST 152; BP_DIAS 97
[2018-07-02] MEDS: PANTOPRAZOLE 40 MG VIAL IV SCH (08:21)
[2018-07-02] MEDS: DOCUSATE SODIUM 100 MG CAPSULE PO SCH ×2 (08:21→16:10)
[2018-07-02] MEDS: ONDANSETRON HCL/PF 4 MG/2 ML VIAL IVP PRN (13:17)
[2018-07-02 16:00] VITALS: BP 154/104
[2018-07-02] MEDS ORDERED: MAGNESIUM HYDROXIDE 30 ML UDC PO ONE (17:00)
--- NOTE | 2018-07-02 18:38 | NUR ---
MS RN CLOSING NOTES ALL DUE MEDS GIVEN, NEEDS MET AND RENDERED. PT IS A/O X4, AFEBRILE. RESPIRATIONS ARE EVEN AND UNLABORED, NOT IN ANY ACUTE DISTRESS NOTED. PT'S PAIN IS TOLERABLE AT THIS TIME. NO C/O SOB, N/V. IV SITE INTACT, NO INFILTRATION NOTED. DRESSING KEPT CLEAN AND DRY. GENESIS DRAINS INTACT AND DRAINING WELL. SMALL AMT OF BM NOTED IN COLOSTOMY BAG. SAFETY MEASURES ARE IN PLACE. CALL LIGHT IS LEFT WITHIN REACH. WILL ENDORSE TO NEXT SHIFT FOR CONTINUITY OF CARE.
--- NOTE | 2018-07-02 19:31 | NUR ---
RN OPENING NOTES RECEIVED PT IN BED, ALERT AND ORIENTED X 4, NO SOB NOTED, IN NO ACUTE DISTRESS, ALL PATIENT'S NEEDS ATTENDED TO AT THIS TIME. PT WITH GOOD SAFETY AWARENESS, BED IN LOW POSITION AND LOCKED IN PLACE. PLACED CALL LIGHT WITHIN EASY REACH. PT CONTINUES TO RECEIVE IVF ORDERED, INFUSING WELL. WILL CONTINUE TO MONITOR.
[2018-07-02 20:00] VITALS: BP 147/94
[2018-07-03] MEDS: HYDROCODONE/APAP 5/325MG 1 EACH TABLET PO PRN ×2 (02:05→09:57)
[2018-07-03] MEDS: HYDROMORPHONE 1 MG/1 ML DISP.SYRIN IV PRN ×3 (03:16→13:35)
[2018-07-03] MEDS: IV D5/0.45 NACL W/20 MEQ KCL 1L IV PRN ×2 (04:28)
[2018-07-03] MEDS: ZOSYN IVPB 3.375 G in IV D5W 50ml IV SCH ×4 (05:38→23:54)
[2018-07-03 07:15] LABS: BASOPHILS # (AUTO) 0.1 /CMM (0.0-0.2); BASOPHILS % (AUTO) 0.6 % (0.0-2.0); EOSINOPHILS % (AUTO) 1.4 % (0.0-6.0); HEMATOCRIT 43 % (39-51); HEMOGLOBIN 13.6 g/dL (13.5-17.5); LYMPHOCYTES # (AUTO) 1.2 /CMM (0.8-4.8); LYMPHOCYTES % (AUTO) 9.4 % (20.0-44.0); MEAN CORPUSCULAR HGB CONC 32 g/dl (31.0-36.0); MEAN CORPUSCULAR VOLUME 91 fL (80-96); MONOCYTES # (AUTO) 1.3 /CMM (0.1-1.30); MONOCYTES % (AUTO) 10.6 % (2.0-12.0); NEUTROPHILS # (AUTO) 9.6 /CMM (1.8-8.9); PLATELET COUNT (AUTO) 298 /CMM (150-450); RDW COEFFICIENT OF VARIATION 13.4 (11.5-15.0); RED BLOOD CELL COUNT(AUTO) 4.73 MIL/uL (4.5-6.0); WHITE BLOOD COUNT (AUTO) 12.3 K/uL (4.3-11.0)
[2018-07-03 07:24] LABS: CALCIUM, SERUM 7.8 mg/dL (8.5-10.1); CREATININE 0.8 mg/dL (0.6-1.3); MAGNESIUM 2.2 mg/dL (1.8-2.4); PHOSPHORUS 3.4 mg/dL (2.5-4.9); POTASSIUM 3.9 mmol/L (3.5-5.1)
--- NOTE | 2018-07-03 07:36 | NUR ---
RN CLOSING NOTES PATIENT IN BED, AWAKE, ALERT AND ORIENTED. ALL PATIENT'S NEEDS ATTENDED TO THROUGHOUT THE SHIFT. PT ABLE TO AMBULATE WITH FWW WITH STANDBY ASSIST AND ABLE TO SIT UP FOR A LONG TIME. ALL DUE MEDICATIONS GIVEN NEEDED. IVF INFUSING WELL ORDERED. PT IN NO ACUTE DISTRESS AT THIS TIME. BED IN LOW POSITION AND LOCKED IN PLACE. CALL LIGHT WITHIN EASY REACH. GENESIS DRAINS WITH SEROUS OUTPUT. COLOSTOMY BAG WITH APPROXIMATELY 80 CC OUTPUT. WILL ENDORSE TO AM SHIFT NURSE FOR CONTINUITY OF CARE.
--- NOTE | 2018-07-03 07:39 | NUR ---
MS RN OPENING NOTES RECEIVED PT LAYING IN BED WITH HOB ELEVATED. PT IS AWAKE, ALERT AND RESPONSIVE. RESPIRATIONS ARE EVEN AND UNLABORED, NOT IN ANY ACUTE DISTRESS NOTED. PT C/O PAIN 6/10 BUT DOES NOT WANT PAIN MEDICATION AT THIS TIME. NO C/O SOB, N/V. IV ACCESS TO LFA G22, NO FILTRATION NOTED. DRESSING KEPT CLEAN AND DRY. IV FLUIDS INFUSING AT 100ML/HR. SAFETY MEASURES ARE IN PLACE. BED IS AT ITS LOWEST AND LOCKED POSITION. CALL LIGHT IS LEFT WITHIN REACH. ENCOURAGED PT TO USE INCENTIVE SPIROMETER AND ABLE TO PERFORM RETURN DEMONSTRATION. WILL CONTINUE TO MONITOR THROUGHOUT SHIFT FOR CONTINUITY OF CARE.
[2018-07-03 08:00] VITALS: BP 147/98
[2018-07-03] MEDS: PANTOPRAZOLE 40 MG VIAL IV SCH (08:27)
[2018-07-03] MEDS: DOCUSATE SODIUM 100 MG CAPSULE PO SCH ×2 (08:27→17:22)
[2018-07-03] MEDS ORDERED: KETOROLAC TROMETHAMINE INJ 30 MG/ML VIAL IM ONE (15:00)
[2018-07-03] MEDS ORDERED: hydrALAZINE HCL 25 MG TABLET PO PRN (15:00)
[2018-07-03] MEDS: oxyCODONE HCL SR 20MG TAB.SR.12H PO SCH (15:00)
[2018-07-03] MEDS ORDERED: FUROSEMIDE 20 MG/2 ML VIAL IV ONE (15:00)
[2018-07-03] MEDS ORDERED: ALBUTEROL FS 2.5 MG/3 ML VIAL.NEB NEB PRN (15:00)
[2018-07-03 16:00] VITALS: BP 150/90
--- NOTE | 2018-07-03 17:29 | NUR ---
MS RN NOTES PT STATED TORADOL IS EFFECTIVE WITH THE PAIN. PT DID NOT WANT TO TAKE OXYCONTIN AND FLEXERIL. WILL CONTINUE TO MONITOR.
--- NOTE | 2018-07-03 18:36 | NUR ---
MS RN CLOSING NOTES ALL DUE MEDS GIVEN, NEEDS MET AND RENDERED. PT IS A/O X4, AFEBRILE. RESPIRATIONS ARE EVEN AND UNLABORED, NOT IN ANY ACUTE DISTRESS NOTED. PT'S PAIN IS TOLERABLE AT THIS TIME. NO C/O SOB, N/V. IV SITE INTACT, NO INFILTRATION NOTED. DRESSING KEPT CLEAN AND DRY. GENESIS DRAINS INTACT AND DRAINING WELL WITH 100CC. SMALL AMT OF BM NOTED IN COLOSTOMY BAG. CHANGED COLOSTOMY BAG X1 AND EDUCATED PT ON HOW TO CLEANSE STOMA AND PERISTOMA AND HOW TO PROPERLY APPLY COLOSTOMY BAG. SAFETY MEASURES ARE IN PLACE. CALL LIGHT IS LEFT WITHIN REACH. WILL ENDORSE TO NEXT SHIFT FOR CONTINUITY OF CARE.
--- NOTE | 2018-07-03 19:05 | NUR ---
RN OPENING NOTES RECEIVED PATIENT IN BED, NOTED WITH FACIAL GRIMACING, PT VERBALIZED THAT HE NEEDS PAIN MEDICATION AND HAS SEVERE LEVEL OF PAIN AND IS FEELING THE SPASMS ON HIS LOWER BACKSIDES. ALL DUE MEDICATION GIVEN, EDUCATED PT ON TURNING AND REPOSITIONING IN BED TO HELP IN ALLEVIATING PAIN. ALL PATIENT'S NEEDS ATTENDED TO AT THIS TIME. PLACED BED IN LOW POSITION AND LOCKED IN PLACE. PLACED CALL LIGHT WITHIN EASY REACH. WILL CONTINUE TO MONITOR.
[2018-07-03] MEDS: CYCLOBENZAPRINE 10 MG TABLET PO PRN (19:11)
[2018-07-03] MEDS: HYDROCODONE/APAP 10/325MG 1 EA TABLET PO PRN (19:11)
[2018-07-03 20:00] VITALS: BP 149/98
--- NOTE | 2018-07-03 20:12 | NUR ---
RN NOTES PT SEEN AND EXAMINED BY DR ENAMORADO. GENESIS DRAINS REMOVED, NO BLEEDING, PT TOLERATED PROCEDURE WELL. MD WITH NEW ORDERS: FOR GENESIS SITE DRESSING TO CLEANSE WITH NS, PAT DRY AND COVER WITH DRY DRESSING DAILY AND ANOTHER ORDER FOR TORADOL 15MG IV Q6HRS PRN FOR PAIN X 48 HOURS. ALL ORDERS NOTED AND CARRIED OUT.
[2018-07-03] MEDS: KETOROLAC TROMETHAMINE INJ 30 MG/ML VIAL IV PRN (21:51)
[2018-07-04] MEDS: HYDROCODONE/APAP 10/325MG 1 EA TABLET PO PRN ×3 (01:47→17:33)
[2018-07-04] MEDS: oxyCODONE HCL SR 20MG TAB.SR.12H PO SCH ×2 (03:00→15:00)
--- NOTE | 2018-07-04 03:36 | NUR ---
RN NOTES OFFERED OXYCONTIN TO PATIENT AND PATIENT REFUSED. PER PATIENT HE DOESN'T NEED PAIN MEDICATION AT THIS TIME AND WOULD LIKE TO STAY AWAY FROM THIS MEDICATION MUCH POSSIBLE. EXPLAINED RISKS AND BENEFITS TO PATIENT BUT PT CONTINUES TO REFUSE, RESPECTED PT'S DECISION. WILL CONTINUE TO MONITOR.
[2018-07-04] MEDS: KETOROLAC TROMETHAMINE INJ 30 MG/ML VIAL IV PRN ×3 (04:56→18:51)
[2018-07-04] MEDS: ZOSYN IVPB 3.375 G in IV D5W 50ml IV SCH ×4 (05:12→23:49)
[2018-07-04 05:53] LABS: EOSINOPHILS % (AUTO) 2.4 % (0.0-6.0); HEMATOCRIT 40 % (39-51); HEMOGLOBIN 13.1 g/dL (13.5-17.5); LYMPHOCYTES # (AUTO) 1.4 /CMM (0.8-4.8); LYMPHOCYTES % (AUTO) 11.3 % (20.0-44.0); MEAN CORPUSCULAR HGB CONC 33 g/dl (31.0-36.0); MEAN CORPUSCULAR VOLUME 91 fL (80-96); MONOCYTES # (AUTO) 1.1 /CMM (0.1-1.30); MONOCYTES % (AUTO) 8.6 % (2.0-12.0); NEUTROPHILS # (AUTO) 9.8 /CMM (1.8-8.9); NEUTROPHILS % (AUTO) 77.7 % (43.0-81.0); PLATELET COUNT (AUTO) 345 /CMM (150-450); RDW COEFFICIENT OF VARIATION 13.3 (11.5-15.0); RED BLOOD CELL COUNT(AUTO) 4.39 MIL/uL (4.5-6.0); WHITE BLOOD COUNT (AUTO) 12.6 K/uL (4.3-11.0)
[2018-07-04 06:03] LABS: CREATININE 0.8 mg/dL (0.6-1.3); MAGNESIUM 2.4 mg/dL (1.8-2.4); PHOSPHORUS 3.3 mg/dL (2.5-4.9); POTASSIUM 4.5 mmol/L (3.5-5.1)
[2018-07-04 06:04] LABS: CALCIUM, SERUM 8.1 mg/dL (8.5-10.1)
[2018-07-04 06:18] LABS: FREE PSA 0.46 ng/mL (0.00-45); PROSTATE SPECIFIC ANTIGEN SCR 2.7 ng/mL (0.00-4.00)
[2018-07-04] MEDS: PANTOPRAZOLE 40 MG TABLET.DR PO SCH (07:00)
[2018-07-04] MEDS: MAGNESIUM HYDROXIDE 30 ML UDC PO PRN (07:00)
--- NOTE | 2018-07-04 07:04 | NUR ---
RN CLOSING NOTES PATIENT WALKING AROUND ROOM, AWAKE AND ORIENTED, VERBALLY RESPONSIVE. PT WITH NO SOB, BREATHING EVEN AND UNLABORED IN ROOM AIR. ENCOURAGED PT TO PARTICIPATE IN ADLS AND AMBULATE MORE OFTEN AND USE INCENTIVE SPIROMETER MUCH POSSIBLE, PT VERBALIZED UNDERSTANDING. ALL PATIENT'S NEEDS ATTENDED TO, IN NO ACUTE DISTRESS. WILL ENDORSE TO AM SHIFT NURSE FOR CONTINUITY OF CARE.
--- NOTE | 2018-07-04 07:30 | NUR ---
MS/RN OPENING NOTE PATIENT IS RECEIVED SITTING IN A C/CHAIR IN HIS ROOM. IN ROOM AIR AND DENIES SOB. RESPIRATION REGULAR AND UNLABORED. DENIES PAIN AT THIS TIME. RAC G 22 PATENT AND SALINE LOCKED. GENESIS DRAIN SITES DRESSINGS INTACT AND CLEAN. COLOSTOMY STOMA PINK AND MOIST. PATIENT IS ENCOURAGED TO AMBULATE AND USE INCENTIVE SPIROMETER. THE PATIENT VERBALIZED UNDERSTANDING. VERBAL CUES ARE PROVIDED TO KEEP SAFETY AWARENESS HIGH. BED LOW AND LOCKED. SIDE RAILS UP X2. CALL LIGHT WITHIN REACH. WILL CONTINUE TO MONITOR.
[2018-07-04 08:00] VITALS: BP 186/85
[2018-07-04] MEDS: DOCUSATE SODIUM 100 MG CAPSULE PO SCH ×2 (08:51→16:24)
[2018-07-04] MEDS: CYCLOBENZAPRINE 10 MG TABLET PO PRN (10:59)
[2018-07-04] MEDS ORDERED: FUROSEMIDE 20 MG/2 ML VIAL IV ONE (15:00)
[2018-07-04] MEDS: ALBUTEROL FS 2.5 MG/3 ML VIAL.NEB NEB SCH ×3 (15:35→23:11)
[2018-07-04] MEDS: IPRATROPIUM NEB FS 0.5 MG/2.5 ML AMPUL.NEB NEB SCH ×4 (15:35→23:11)
--- NOTE | 2018-07-04 17:02 | NUR ---
MS/RN NOTE PATIENT NOTED TOLERATING FULL LIQUID DIET WELL. PAGED DR MCNEAL AND RECEIVED NEW ORDER FOR PUREED DIET. THE ORDER IS READ BACK, VERIFIED. NOTED AND CARRIED OUT
--- NOTE | 2018-07-04 18:16 | NUR ---
MS/RN CLOSING NOTE PATIENT ALERT AND ORIENTED X4. DENIES SOB. RESPIRATION REGULAR AND UNLABORED. PATIENT IS IN ROOM AIR AND SATURATION IS AT 97%. PATIENT COMPLAINS OF ABDOMINAL INCISION PAIN 4/10. PATIENT WILL BE GIVEN PRN PAIN MEDICATION. RAC G 22 PATENT AND SALINE LOCKED. COLOSTOMY STOMA SITE PINK AND MOIST. NOTED WITH SOFT AND BROWN STOOL IN THE COLOSTOMY BAG. GENESIS DRAIN SITES (2 SITES) WITH NO S/S INFECTION AND BOTH ARE COVERED WITH DRY DRESSING. THE LOWER GENESIS SITE OOZING SMALL AMOUNT OF SEROSANGUINEOUS FLUID. THE DRESSING IS CHANGED NEEDED. PATIENT IS ENCOURAGED TO AMBULATE AND USE INCENTIVE SPIROMETER, VERBAL CUES ARE GIVEN TO KEEP SAFETY AWARENESS HIGH. THE PATIENT VERBALIZED UNDERSTANDING. BED LOW AND LOCKED. SIDE RAILS UP X 3. CALL LIGHT WITHIN REACH. WILL ENDORSE TO WINE PASTEURIZER.
--- NOTE | 2018-07-04 19:30 | NUR ---
RN OPENING NOTES RECEIVED PT AMBULATING IN THE ROOM, IN NO ACUTE DISTRESS, NO SOB NOTED, BREATHING EVEN AND UNLABORED. PT DENIES PAIN AT THIS TIME. ALL PATIENT'S NEEDS ATTENDED TO AT THIS TIME. IV PERIPHERAL LINE ON SALINE LOCK, INTACT AND PATENT. WILL CONTINUE TO MONITOR.
[2018-07-04 21:20] VITALS: BP 133/79
[2018-07-05] MEDS: KETOROLAC TROMETHAMINE INJ 30 MG/ML VIAL IV PRN ×4 (00:52→18:59)
[2018-07-05] MEDS: oxyCODONE HCL SR 20MG TAB.SR.12H PO SCH ×2 (03:00→15:00)
[2018-07-05] MEDS: IPRATROPIUM NEB FS 0.5 MG/2.5 ML AMPUL.NEB NEB SCH ×6 (03:07→23:47)
[2018-07-05] MEDS: ALBUTEROL FS 2.5 MG/3 ML VIAL.NEB NEB SCH ×6 (03:07→23:47)
[2018-07-05] MEDS: ZOSYN IVPB 3.375 G in IV D5W 50ml IV SCH ×2 (05:21→12:42)
[2018-07-05] MEDS: CYCLOBENZAPRINE 10 MG TABLET PO PRN (05:21)
[2018-07-05] MEDS: HYDROCODONE/APAP 5/325MG 1 EACH TABLET PO PRN (05:22)
--- NOTE | 2018-07-05 06:32 | NUR ---
RN CLOSING NOTES PATIENT IN BED, SLEPT INTERMITTENTLY THROUGHOUT THE SHIFT, PT ABLE TO SAFELY AMBULATE TO THE BATHROOM INDEPENDENTLY TOLERATED, AWARE OF SAFETY NEEDS. EDUCATED PATIENT TO WEAN OFF IVP PAIN MEDICATION, VERBALIZED UNDERSTANDING. NOTED PT'S COLOSTOMY BAG WITH MINIMAL OUTPUT OF SOFT BROWN STOOL. GENESIS DRAIN SITE ON MID ABDOMEN OOZING WITH SEROSANGINUOS FLUID, NO FOUL ODOR, DRESSING CHANGED PRN. IV PERIPHERAL INTACT AND PATENT ON RAC G#22. ALL PATIENT'S NEEDS ATTENDED TO. CALLL LIGIHT PLACED WITHIN EASY REACH. BED IN LOW POSITION AND LOCKED IN PLACE. WILL ENDORSE TO AM SHIFT NURSE FOR CONTINUITY OF CARE.
--- NOTE | 2018-07-05 07:40 | NUR ---
RN NOTES PATIENT A/OX4, IN BED, ENCOURAGED PATIENT TO GET OUT OF BED AND AMBULATE, KEPT COMFORTABLE AT THIS TIME, NEEDS ATTENDED, CALL LIGHT WITHIN REACH, WILL CONTINUE TO MONITOR.
[2018-07-05 08:00] VITALS: BP 160/91
[2018-07-05] MEDS: DOCUSATE SODIUM 100 MG CAPSULE PO SCH ×2 (08:37→16:10)
[2018-07-05] MEDS: PANTOPRAZOLE 40 MG TABLET.DR PO SCH (08:37)
[2018-07-05 08:41] LABS: CALCIUM, SERUM 7.8 mg/dL (8.5-10.1); CREATININE 0.9 mg/dL (0.6-1.3); MAGNESIUM 2.1 mg/dL (1.8-2.4); PHOSPHORUS 3.6 mg/dL (2.5-4.9)
[2018-07-05 08:55] LABS: BASOPHILS # (AUTO) 0.1 /CMM (0.0-0.2); BASOPHILS % (AUTO) 0.4 % (0.0-2.0); EOSINOPHILS % (AUTO) 0.6 % (0.0-6.0); HEMATOCRIT 39 % (39-51); HEMOGLOBIN 13.2 g/dL (13.5-17.5); LYMPHOCYTES # (AUTO) 1.1 /CMM (0.8-4.8); LYMPHOCYTES % (AUTO) 6.6 % (20.0-44.0); MEAN CORPUSCULAR HGB CONC 34 g/dl (31.0-36.0); MEAN CORPUSCULAR VOLUME 90 fL (80-96); MONOCYTES % (AUTO) 5.9 % (2.0-12.0); NEUTROPHILS % (AUTO) 86.5 % (43.0-81.0); PLATELET COUNT (AUTO) 222 /CMM (150-450); RDW COEFFICIENT OF VARIATION 13.4 (11.5-15.0); RED BLOOD CELL COUNT(AUTO) 4.34 MIL/uL (4.5-6.0); WHITE BLOOD COUNT (AUTO) 17.3 K/uL (4.3-11.0)
[2018-07-05] MEDS ORDERED: FEE PK DOSING 1 MIN EA MC ONE (15:40)
[2018-07-05 15:47] VITALS: BP 143/90
[2018-07-05] MEDS: FLUCONAZOLE IN NS,PREMIX 400 MG in PREMIX 1 EA IV SCH ×2 (16:10)
[2018-07-05 18:10] LABS: APPEARANCE,URINE CLEAR (CLEAR); BILIRUBIN,URINE NEGATIVE (NEGATIVE); BLOOD, URINE NEGATIVE Ery/uL (NEGATIVE); COLOR,URINE DARK YELLO (YELLOW); KETONES,URINE 1+ (NEGATIVE); LEUKOCYTE ESTERASE ,URINE NEGATIVE (NEGATIVE); NITRITE, URINE NEGATIVE (NEGATIVE); PROTEIN,URINE NEGATIVE (NEGATIVE); UGLUCOSE NEGATIVE (NEGATIVE); UROBILINOGEN,URINE 0.2 EU/dL (0.2)
--- NOTE | 2018-07-05 18:15 | NUR ---
RN NOTES PATIENT A/OX4, PATIENT'S OSTOMY BAG CHANGED X1, ABLE TO AMBULATE TO RESTROOM, PATIENT DENIES PAIN OR DISCOMFORT AT THIS TIME, PREVIOUS GENESIS SITE STILL DRAINING. CAROLINE OIL FIELD WORKER MADE AWARE. PATIENT ENCOURAGED TO USE INCENTIVE SPIROMETER. NEEDS ATTENDED AND MET, CALL LIGHT WITHIN REACH, WILL ENDORSE TO SOLDER DEPOSIT OPERATOR FOR JAEL.
[2018-07-05 18:19] LABS: BACTERIA,URINE Few /HPF (None Seen); MUCUS,URINE Few /LPF (None Seen); RBC,URINE 0-2 /HPF (0-2); SQUAMOUS EPITHELIAL CELL,UR Rare /HPF (None Seen); WBC,URINE 0-2 /HPF (0-3)
[2018-07-05] MEDS: VANCOMYCIN 1 GM in IV D5W 250 ML IV SCH (18:24)
--- NOTE | 2018-07-05 19:45 | NUR ---
MSRN FULLY AWAKE, COLOSTOMY FULL, CHANGED WHOLE DEVICE. STOOL APPEARS PASTY ABOUT TO LEAK. COLOSTOMY CARE STARTED, BEDSIDE TEACHING REGARDING COLOSTOMY CARE. APPEARS TO UNDERSTAND. KEPT COMFORTABLE, ENCOURAGE TO USE INCENTIVE SPIROMETRY AND AMBULATION. PLAN OF CARE AND MEDICATION REGIMEN WELL UNDERSTOOD. TO CONTINUE.
[2018-07-05 20:00] VITALS: BP 148/96
[2018-07-05] MEDS: MEROPENEM 1 G in IV NS 0.9% 100 ML IV SCH (21:08)
--- NOTE | 2018-07-05 21:30 | NUR ---
MSRN SEEN BY SURGEON. INFORMED OF TEMP EARLIER 100.3. RELAYED TO SURGEON REGARDING TORADOL ORDER. RENEWED. PER MD WILL DO CT OF ABDOMEN TOMORROW NO CONTRAST IF SERUM WBC REMAINS 17,000 OR 18,000.
--- NOTE | 2018-07-05 22:10 | NUR ---
MSRN SEEN AMBULATING AROUND HALLWAYS, TOLERATED WELL.
--- NOTE | 2018-07-05 22:30 | NUR ---
VIELKAN RECHECKED TEMP 98.4 THIS TIME
[2018-07-06] MEDS ORDERED: KETOROLAC TROMETHAMINE INJ 30 MG/ML VIAL IV PRN
[2018-07-06] MEDS: HYDROCODONE/APAP 10/325MG 1 EA TABLET PO PRN ×2 (01:45→20:05)
[2018-07-06] MEDS: VANCOMYCIN 1 GM in IV D5W 250 ML IV SCH ×3 (01:45→16:55)
[2018-07-06] MEDS: CYCLOBENZAPRINE 10 MG TABLET PO PRN ×3 (02:28→16:25)
[2018-07-06] MEDS: oxyCODONE HCL SR 20MG TAB.SR.12H PO SCH ×2 (03:00→15:00)
[2018-07-06] MEDS: IPRATROPIUM NEB FS 0.5 MG/2.5 ML AMPUL.NEB NEB SCH ×5 (03:30→19:37)
[2018-07-06] MEDS: ALBUTEROL FS 2.5 MG/3 ML VIAL.NEB NEB SCH ×5 (03:30→19:37)
[2018-07-06] MEDS: MEROPENEM 1 G in IV NS 0.9% 100 ML IV SCH ×3 (05:22→20:08)
--- NOTE | 2018-07-06 05:40 | NUR ---
MSRN DUE MEDS ADMINISTERED. STATED WILL CALL FOR PAIN MEDS LATER IF NEEDED. STABEL FOR NOW. REMAINS AFEBRILE
[2018-07-06 06:30] LABS: EOSINOPHILS % (AUTO) 0.9 % (0.0-6.0); HEMATOCRIT 37 % (39-51); HEMOGLOBIN 12.1 g/dL (13.5-17.5); LYMPHOCYTES # (AUTO) 1.2 /CMM (0.8-4.8); LYMPHOCYTES % (AUTO) 8.2 % (20.0-44.0); MEAN CORPUSCULAR HGB CONC 33 g/dl (31.0-36.0); MEAN CORPUSCULAR VOLUME 90 fL (80-96); MONOCYTES # (AUTO) 1.2 /CMM (0.1-1.30); NEUTROPHILS # (AUTO) 12.1 /CMM (1.8-8.9); NEUTROPHILS % (AUTO) 82.9 % (43.0-81.0); PLATELET COUNT (AUTO) 473 /CMM (150-450); RDW COEFFICIENT OF VARIATION 13.2 (11.5-15.0); RED BLOOD CELL COUNT(AUTO) 4.07 MIL/uL (4.5-6.0); WHITE BLOOD COUNT (AUTO) 14.6 K/uL (4.3-11.0)
[2018-07-06 06:47] LABS: CALCIUM, SERUM 7.8 mg/dL (8.5-10.1); CREATININE 0.9 mg/dL (0.6-1.3); MAGNESIUM 2.3 mg/dL (1.8-2.4); PHOSPHORUS 3.6 mg/dL (2.5-4.9); POTASSIUM 4.3 mmol/L (3.5-5.1)
--- NOTE | 2018-07-06 07:39 | NUR ---
MS RN RECEIVED ON BED, AWAKE,ALERT,ORIENTED X4,NOT IN ANY FORM OF DISTRESS,RESPIRATIONS EVEN AD UNLABORED,NO SOB NOTED, LUNGS ARE CLEAR,ABDOMEN SOFT,COLOSTOMY INTACT W/ BROWN COLORED OUTPUT, WILL MONITOR PATIENT.
[2018-07-06 08:00] VITALS: BP 173/97
[2018-07-06] MEDS: PANTOPRAZOLE 40 MG TABLET.DR PO SCH (08:24)
[2018-07-06] MEDS: DOCUSATE SODIUM 100 MG CAPSULE PO SCH ×2 (08:24→16:25)
--- NOTE | 2018-07-06 08:35 | NUR ---
MS ASTUD[place]O BREAKFAST SERVED,DUE MEDS GIVEN,TOLERATED WELL.
--- NOTE | 2018-07-06 09:05 | NUR ---
MS RN SEEN ON HALLWAY,WALKING, TOLERATED WELL.
[2018-07-06] MEDS ORDERED: PANT40TA2 PO (12:06)
[2018-07-06] MEDS ORDERED: DOCU-141 PO (12:06)
[2018-07-06] MEDS ORDERED: ACET325T53 PO (12:06)
[2018-07-06 16:00] VITALS: BP 156/92
[2018-07-06] MEDS: FLUCONAZOLE IN NS,PREMIX 400 MG in PREMIX 1 EA IV SCH ×2 (16:24)
--- NOTE | 2018-07-06 17:00 | NUR ---
MS RN WAS SEEN BY DR. VALENCIA Ames/ CHRISTINA TO STAY FOR ATB.
--- NOTE | 2018-07-06 18:23 | NUR ---
MS RN ON BED. NO DISTRESS NOTED.
[2018-07-06 20:00] VITALS: BP 155/93
--- NOTE | 2018-07-06 20:05 | NUR ---
MS RN NOTES Patient complained pain. Due meds given as ordered. Will continue to monitor.
--- NOTE | 2018-07-06 20:55 | NUR ---
rn ms opening notes received patient in bed awake alert and oriented x 4, respirations even and unlabored with equal rise and fall of chest, spo2 ra at 99%, no sob present at this time, denies any pain or discomfort, iv site to right ac #22 g intact and patent, no redness, no infiltration present. oriented to staff and call light, patient is ambulatory motivated to self care, per patient will like curtain and door close everytime. oriented to call aranda in need of assistance verbalize he understands. colostomy bad to left side quadrant intact . all needs attended, call light kept within reach, will continue to monitor.
--- NOTE | 2018-07-06 23:09 | NUR ---
RN MS NOTES PATIENT SEEN BY DR MCNEAL. ABNER WITH NEW ORDER FOR CT SCAN OF ABDOMEN ,PELVIS AND CHEST WITH PO AND IV CONTRAST.
--- NOTE | 2018-07-06 23:30 | NUR ---
RN MS NOTES PATIENT AGREED TO PROCEDURE PATIENT SIGNED CONSENT.
[2018-07-06] MEDS ORDERED: BARIUM SULFATE SUSP 450 ML BOTTLE PO ONE (23:54)
--- NOTE | 2018-07-07 | NUR ---
johnathan ms notes patient was instructed to drink barium sulfate oral suspension 2% for ct scan as ordered.
[2018-07-07] MEDS: ALBUTEROL FS 2.5 MG/3 ML VIAL.NEB NEB SCH ×6 (00:08→19:30)
[2018-07-07] MEDS: IPRATROPIUM NEB FS 0.5 MG/2.5 ML AMPUL.NEB NEB SCH ×6 (00:08→19:58)
--- NOTE | 2018-07-07 00:50 | NUR ---
rn ms notes patient was bale to consume entire barium sulfate oral suspension.
[2018-07-07] MEDS: VANCOMYCIN 1 GM in IV D5W 250 ML IV SCH ×3 (01:11→18:49)
[2018-07-07] MEDS ORDERED: IOHEXOL-300 100 ML VIAL IV ONE (01:28)
[2018-07-07] MEDS ORDERED: CT SWABBABLE VALVE TRANS SET 1 EA INFUS.SET MC ONE (01:28)
[2018-07-07] MEDS ORDERED: IV NS 0.9% 250 ML IV ONE (01:28)
--- NOTE | 2018-07-07 01:39 | NUR ---
rn ms notes patient was picked up for ct scan,left via wheel chair in stable condition
--- NOTE | 2018-07-07 01:57 | NUR ---
rn ms notes patient back from ct scan in stable condition, vancomycin running as ordered.
[2018-07-07] MEDS: oxyCODONE HCL SR 20MG TAB.SR.12H PO SCH ×2 (02:20→15:00)
--- NOTE | 2018-07-07 02:22 | NUR ---
rn ms notes patient refused oxycontin. states " I dont want oxycontin".
[2018-07-07] MEDS: CYCLOBENZAPRINE 10 MG TABLET PO PRN ×2 (02:40→18:44)
--- NOTE | 2018-07-07 02:42 | NUR ---
rn ms notes patient complaint of muscle spasm to side torso area, requesting for flexiril , prn given as ordered
--- NOTE | 2018-07-07 04:07 | NUR ---
rn ms notes per rt patient stated do not wake up if sleeping rt treatment was skipped per pr request
[2018-07-07] MEDS: MEROPENEM 1 G in IV NS 0.9% 100 ML IV SCH ×3 (05:19→20:33)
[2018-07-07 06:35] LABS: CALCIUM, SERUM 7.8 mg/dL (8.5-10.1); POTASSIUM 3.9 mmol/L (3.5-5.1)
--- NOTE | 2018-07-07 06:37 | NUR ---
rn ms notes relayed to clinic coordinator dhara rey regarding results for ct, no new orders at this time per clinic coordinator follow up in am with primary and surgeon.
--- NOTE | 2018-07-07 07:26 | NUR ---
rn ms closing notes patient in bed awake alert and oriented x 4, respirations even and unlabored with equal rise and fall chest, denies any pain or discomfort at this time, new iv site started to left fa #22 g, intact and patent, no redness, no infiltration present. right fa site removed due to dislodged.colostomy bag remains intact, safety precautions in place, low bed and locked, call light kept within reach. all needs attended at this time, antibiotics infused as ordered, fluids offered patient left comfortable will continue to monitor and endorse to next shift.
--- NOTE | 2018-07-07 07:45 | NUR ---
RN OPENING NOTES PT IN BED RESTING. NO S/S OF RESP DISTRESS OR SOB. NO C/O PAIN AT THIS TIME. PT IS REQUESTING THAT HE NOT BE DISTURBED AT THIS TIME. IV ACCESS NOTED ON LFA, CURRENTLY SL. TO F/U ON RESULTS OF CT SCAN TAKEN IN EARLY AM. SAFETY MEASURES IN PLACE, CALL LIGHT WITHIN REACH. WILL CONTINUE TO MONITOR.
[2018-07-07 08:00] VITALS: BP 144/87
[2018-07-07] MEDS: DOCUSATE SODIUM 100 MG CAPSULE PO SCH ×2 (08:30→16:17)
[2018-07-07] MEDS: PANTOPRAZOLE 40 MG TABLET.DR PO SCH (08:30)
--- NOTE | 2018-07-07 13:01 | NUR ---
RN NOTES DR. MCNEAL MADE AWARE OF CT RESULTS. PER MD CBC AND REGULAR DIET ORDERED. ORDERED TO MONITOR TEMPERATURE AND WBC COUNT. WILL CONTINUE TO MONITOR.
[2018-07-07 13:21] LABS: BASOPHILS # (AUTO) 0.1 /CMM (0.0-0.2); BASOPHILS % (AUTO) 0.5 % (0.0-2.0); EOSINOPHILS % (AUTO) 1.9 % (0.0-6.0); HEMATOCRIT 36 % (39-51); HEMOGLOBIN 11.4 g/dL (13.5-17.5); LYMPHOCYTES # (AUTO) 1.3 /CMM (0.8-4.8); LYMPHOCYTES % (AUTO) 9.8 % (20.0-44.0); MEAN CORPUSCULAR HGB CONC 32 g/dl (31.0-36.0); MEAN CORPUSCULAR VOLUME 91 fL (80-96); MONOCYTES # (AUTO) 1.2 /CMM (0.1-1.30); MONOCYTES % (AUTO) 8.7 % (2.0-12.0); NEUTROPHILS # (AUTO) 10.8 /CMM (1.8-8.9); NEUTROPHILS % (AUTO) 79.1 % (43.0-81.0); PLATELET COUNT (AUTO) 579 /CMM (150-450); RDW COEFFICIENT OF VARIATION 13.3 (11.5-15.0); RED BLOOD CELL COUNT(AUTO) 3.92 MIL/uL (4.5-6.0); WHITE BLOOD COUNT (AUTO) 13.7 K/uL (4.3-11.0)
[2018-07-07 16:00] VITALS: BP 125/88
[2018-07-07] MEDS: FLUCONAZOLE IN NS,PREMIX 400 MG in PREMIX 1 EA IV SCH ×2 (16:17)
[2018-07-07] MEDS: HYDROCODONE/APAP 10/325MG 1 EA TABLET PO PRN (18:44)
--- NOTE | 2018-07-07 19:20 | NUR ---
MS RN OPENING NOTE Patient was seen sitting upright in bed AAOx4, breathing on RA with no SOB, and no signs of acute distress. IV Vanco is running through the left FA IV at 250ml/hr with no signs of leaking, infiltration, or phlebitis. Four small incisions are noted on the patient's abdomen from laparscopic surgery; incisions are well approximated, closed, no drainage, no inflammation. Colostomy on left side is draining soft/liquid brown stool. Patient is educated on maintenance of colostomy and independent with self care. Bed is low/locked, two side rails up, and call aranda within reach. Patient has no immediate needs or concerns at this time. Will continue to monitor.
[2018-07-07 20:00] VITALS: BP 144/83
--- NOTE | 2018-07-07 20:00 | NUR ---
MS RN NOTE - Orders from Dr. Paul Orders received from Dr. Paul passed on from [facility] nurse - CBC, PT/INR, PTT, NPO at midnight, CT guided drainage of abdominal abscess. Message sent to Dr. Paul to confirm CT scan. Per Dr. Paul - patient is to have CT of abdomen/pelvis with or without contrast for guided drainage of abdominal abscess. Dr. Paul would like interventional radiology to decide whether or not to use contrast.
[2018-07-07 20:10] VITALS: BP 144/83
[2018-07-08] MEDS: IPRATROPIUM NEB FS 0.5 MG/2.5 ML AMPUL.NEB NEB SCH ×7 (00:07→23:30)
[2018-07-08] MEDS: ALBUTEROL FS 2.5 MG/3 ML VIAL.NEB NEB SCH ×7 (00:08→23:30)
[2018-07-08] MEDS: VANCOMYCIN 1 GM in IV D5W 250 ML IV SCH ×3 (01:35→18:22)
[2018-07-08] MEDS: HYDROCODONE/APAP 10/325MG 1 EA TABLET PO PRN ×3 (01:35→18:37)
--- NOTE | 2018-07-08 01:35 | NUR ---
MS RN NOTE - [place], refuses Oxy Patient requested [place] for pain relief. Reports having about 8/10 abdominal pain (s/p surgery). Patient was informed that he has oxycontin scheduled q12h, due at 03:00. Patient refused oxycontin, and states that he has refused the last two scheduled doses of oxy. PO [place] 10/325mg was administered for pain relief per prn orders.
[2018-07-08] MEDS: oxyCODONE HCL SR 20MG TAB.SR.12H PO SCH ×2 (02:57→15:00)
--- NOTE | 2018-07-08 04:25 | NUR ---
MS RN CLOSING NOTE - Transfer to MS-2 Patient was transferred to MS-2 AAOx4 and in stable condition. All patient belongings and medical chart were transferred with patient. Report given to [facility] for continuity of care.
--- NOTE | 2018-07-08 04:30 | NUR ---
MS RN NOTES TRANSFER FROM [facility] THIS 47 YO MALE A/O X 4,AMBULATORY S/P AX LAP WITH PARTIAL BOWEL RESECTION OF SIGMOID COLON WITH COLOSTOMY ON 06/26.A/O X4, SALINE LOCK LEFT POSTERIOR ARM INFILTRATED.NEW SALINE LOCK PLACE ON LEFT LOWER ARM #20,FLUSHED WITH NS AND KEPT PATENT.DENIES PAIN AT THE MOMENT.CALL LIGHT IN REACH,NEEDS ANTICIPATED.
--- NOTE | 2018-07-08 05:42 | NUR ---
MS RN NOTES PAIN MANAGEMENT C/O ABDOMINAL PAIN 8/10 ON PAIN SCALE,NORCO 10/325MG,1 TAB PO GIVEN WITH SIPS OF WATER
[2018-07-08] MEDS: MEROPENEM 1 G in IV NS 0.9% 100 ML IV SCH ×4 (05:46→20:59)
--- NOTE | 2018-07-08 06:20 | NUR ---
MS RN NOTES KEPT NPO FOR CT ABDOMEN/PELVIS WITH OR WITHOUT CONTRAST FOR GUIDED DRAINAGE OF ABSCESS,CALM AND COOPERATIVE.COMPLIANT WITH CARE AND MEDS.IN NO ACUTE DISTRESS.WILL ENDORSE TO DAY NURSE FOR JAEL.
[2018-07-08 07:07] LABS: BASOPHILS # (AUTO) 0.1 /CMM (0.0-0.2); BASOPHILS % (AUTO) 0.4 % (0.0-2.0); EOSINOPHILS % (AUTO) 2.8 % (0.0-6.0); HEMATOCRIT 35 % (39-51); HEMOGLOBIN 11.4 g/dL (13.5-17.5); LYMPHOCYTES % (AUTO) 7.3 % (20.0-44.0); MEAN CORPUSCULAR HGB CONC 32 g/dl (31.0-36.0); MEAN CORPUSCULAR VOLUME 90 fL (80-96); MONOCYTES # (AUTO) 1.2 /CMM (0.1-1.30); MONOCYTES % (AUTO) 8.8 % (2.0-12.0); NEUTROPHILS # (AUTO) 10.9 /CMM (1.8-8.9); NEUTROPHILS % (AUTO) 80.7 % (43.0-81.0); PLATELET COUNT (AUTO) 696 /CMM (150-450); RDW COEFFICIENT OF VARIATION 13.4 (11.5-15.0); RED BLOOD CELL COUNT(AUTO) 3.92 MIL/uL (4.5-6.0); WHITE BLOOD COUNT (AUTO) 13.5 K/uL (4.3-11.0)
[2018-07-08 07:19] LABS: INR 0.97 (0.87-1.13)
[2018-07-08 07:26] LABS: CALCIUM, SERUM 7.9 mg/dL (8.5-10.1); CREATININE 1.1 mg/dL (0.6-1.3); POTASSIUM 3.9 mmol/L (3.5-5.1)
[2018-07-08] MEDS: PANTOPRAZOLE 40 MG TABLET.DR PO SCH (07:30)
--- NOTE | 2018-07-08 07:54 | NUR ---
RN OPENING NOTES RECEIVED PT. PT IS STABLE AND RESTING IN BED. A/OX4. NO S/S OF RESP DISTRESS OR SOB. NO C/O PAIN. PT REPORTS NO INCREASED TEMPERATURE. ABLE TO TOLERATE REGULAR DIET LAST NIGHT 07/07. PT IS CURRENTLY NPO FOR CT GUIDED DRAINAGE OF ABDOMINAL ABSCESS. CONSENT FORM SIGNED AND PLACED IN CHART. WILL F/U WITH RADIOLOGY REGARDING TIME OF PROCEDURE. SAFETY MEASURES IN PLACE, CALL LIGHT WITHIN REACH. WILL CONTINUE TO MONITOR.
[2018-07-08 08:00] VITALS: BP 121/65
[2018-07-08] MEDS: DOCUSATE SODIUM 100 MG CAPSULE PO SCH ×2 (08:36→16:35)
[2018-07-08] MEDS ORDERED: LIDOCAINE HCL/PF 1% 30 ML SDV ONE (12:15)
--- NOTE | 2018-07-08 12:30 | NUR ---
RN NOTES PT TAKEN FOR CT GUIDED DRAINING OF ABDOMINAL ABSCESS. TAKEN BY RADIOLOGY. PT HAS BEEN NPO SINCE MIDNIGHT. WILL CONTINUE TO MONITOR UPON RETURN TO UNIT.
[2018-07-08] MEDS ORDERED: MIDAZOLAM HCL 2 MG/2ML VIAL IV PRN (13:00)
[2018-07-08] MEDS ORDERED: FENTANYL PF 100MCG/2ML AMPUL IV PRN (13:00)
[2018-07-08] MEDS ORDERED: NALOXONE HCL 0.4 MG/ML AMPUL IV PRN (13:00)
[2018-07-08] MEDS ORDERED: IV NS 0.9% 500 ML IV ONE (13:18)
[2018-07-08] MEDS: CYCLOBENZAPRINE 10 MG TABLET PO PRN (15:19)
[2018-07-08 16:00] VITALS: BP 124/70
[2018-07-08] MEDS: FLUCONAZOLE IN NS,PREMIX 400 MG in PREMIX 1 EA IV SCH ×2 (16:15)
--- NOTE | 2018-07-08 18:53 | NUR ---
RN CLOSING NOTES PT IN BED RESTING. A/OX4. NO S/S OF RESP DISTRESS OR SOB. PT HAS C/O MILD PAIN, 3/10 LOCATED NEAR LLQ ABDOMINAL WALL. CT GUIDED DRAINING OF ABDOMINAL ABSCESS. PT RETURNED TO UNIT WITH OUT C/O PAIN, ABLE TO TOLERATE REGULAR DIET. SAFETY MEASURES IN PLACE, CALL LIGHT WITHIN REACH. WILL ENDORSE TO BUSINESS SERVICES OFFICER FOR JAEL.
--- NOTE | 2018-07-08 19:00 | NUR ---
MS RN OPENING/NOTES PT IN AWAKE IN BED. A.O X3, BREATHING EVEN AND UNLABORED, NO S/S OF ACUTE DISTRESS.BED IS IN LOWEST, AND LOCKED POSITION. 2 X SIDE RAIL UP INSTRUCTED TO USE CALL LIGHT FOR ASSISTANCE.
[2018-07-08 20:00] VITALS: BP 150/94
[2018-07-09] MEDS: CYCLOBENZAPRINE 10 MG TABLET PO PRN ×4 (00:21→21:10)
[2018-07-09] MEDS: HYDROCODONE/APAP 10/325MG 1 EA TABLET PO PRN ×4 (00:21→22:47)
[2018-07-09] MEDS: VANCOMYCIN 1 GM in IV D5W 250 ML IV SCH ×2 (01:13→09:59)
[2018-07-09] MEDS: oxyCODONE HCL SR 20MG TAB.SR.12H PO SCH ×2 (03:00→14:50)
--- NOTE | 2018-07-09 03:00 | NUR ---
MS RN NOTES PT REFUSED OXYCODONE DUE AT 0300 DESPITE EXPLAINING RISKS AND BENEFITS OFFERED 3 TIMES STILL REFUSED PER PT HE DOESN'T LIKE TO HAVE IT FOR NOW. PT A/O X4
[2018-07-09] MEDS: IPRATROPIUM NEB FS 0.5 MG/2.5 ML AMPUL.NEB NEB SCH ×6 (03:25→23:48)
[2018-07-09] MEDS: ALBUTEROL FS 2.5 MG/3 ML VIAL.NEB NEB SCH ×6 (03:25→23:48)
[2018-07-09] MEDS: HYDROMORPHONE 1 MG/1 ML DISP.SYRIN IV PRN ×4 (03:35→23:40)
[2018-07-09] MEDS: MEROPENEM 1 G in IV NS 0.9% 100 ML IV SCH ×3 (05:20→21:12)
--- NOTE | 2018-07-09 06:55 | NUR ---
MS RN CLOSING NOTES PT COMFORTABLY ASLEEP AND EASILY AWAKEN, STABLE, NOT IN DISTRESS. RESPIRATION EVEN AND UNLABORED. KEPT CLEAN AND DRY AND COMFORTABLE, ALL NURSING CARE RENDERED. NEEDS ATTENDED AND ANTICIPATED. NO COMPLAIN OF PAIN AT THIS TIME. ON LOW BED AT ALL TIMES TO ENSURE SAFETY. SAFE HAZARD FREE ENVIRONMENT PROVIDED. CALL LIGHT WITHIN EASY TO REACH. WILL ENDORSE NEXT SHIFT CONTINUITY OF CARE.
--- NOTE | 2018-07-09 08:11 | NUR ---
MS RN NOTES PATIENT RECEIVED RESTING INSIDE ROOM. AWAKE, ALERT AND ORIENTED X4. VERBALLY RESPONSIVE AND RESPONDS TO VERBAL AND TACTILE STIMULI. BREATHING EVEN AND UNLABORED. NO SOB OR ACUTE DISTRESS NOTED. DENIES ANY PAIN OR DISCOMFORT. IV INTACT AND PATENT. COLOSTOMY BAG IN PLACE. LLQ DRAIN IN PLACE. WILL CONTINUE TO MONITOR. BED LOCKED AND IN LOW POSITION. BILATERAL UPPER SIDE RAILS UP AND LOCKED. CALL LIGHT WITHIN EASY REACH
[2018-07-09 08:26] VITALS: BP 152/94
[2018-07-09] MEDS: DOCUSATE SODIUM 100 MG CAPSULE PO SCH ×2 (08:31→16:56)
[2018-07-09] MEDS: PANTOPRAZOLE 40 MG TABLET.DR PO SCH (08:31)
[2018-07-09 08:33] LABS: BASOPHILS # (AUTO) 0.1 /CMM (0.0-0.2); EOSINOPHILS % (AUTO) 3.2 % (0.0-6.0); HEMATOCRIT 40 % (39-51); HEMOGLOBIN 12.8 g/dL (13.5-17.5); LYMPHOCYTES # (AUTO) 1.4 /CMM (0.8-4.8); LYMPHOCYTES % (AUTO) 10.7 % (20.0-44.0); MEAN CORPUSCULAR HGB CONC 32 g/dl (31.0-36.0); MEAN CORPUSCULAR VOLUME 89 fL (80-96); MONOCYTES # (AUTO) 1.2 /CMM (0.1-1.30); NEUTROPHILS # (AUTO) 10.3 /CMM (1.8-8.9); NEUTROPHILS % (AUTO) 76.1 % (43.0-81.0); PLATELET COUNT (AUTO) 832 /CMM (150-450); RDW COEFFICIENT OF VARIATION 13.6 (11.5-15.0); RED BLOOD CELL COUNT(AUTO) 4.44 MIL/uL (4.5-6.0); WHITE BLOOD COUNT (AUTO) 13.5 K/uL (4.3-11.0)
[2018-07-09 08:49] LABS: CALCIUM, SERUM 8.7 mg/dL (8.5-10.1); MAGNESIUM 2.2 mg/dL (1.8-2.4); PHOSPHORUS 3.1 mg/dL (2.5-4.9); POTASSIUM 4.1 mmol/L (3.5-5.1)
[2018-07-09 16:09] VITALS: BP 135/95
[2018-07-09] MEDS: FLUCONAZOLE IN NS,PREMIX 400 MG in PREMIX 1 EA IV SCH ×2 (16:56)
[2018-07-09] MEDS: VANCOMYCIN 0.75 GM in IV D5W 250 ML IV SCH (18:56)
--- NOTE | 2018-07-09 19:21 | NUR ---
MS RN NOTES PATIENT RESTING INSIDE ROOM. AWAKE, ALERT AND ORIENTED. VERBALLY RESPONSIVE AND RESPONDS TO VERBAL AND TACTILE STIMULI. BREATHING EVEN AND UNLABORED. NO SOB OR ACUTE DISTRESS AT THIS TIME. PATIENT DENIES ANY PAIN OR DISCOMFORT AT THIS TIME. NO CHANGES IN LOC NOTED AT THIS TIME. IV INTACT AND PATENT, NO SWELLING OR BLEEDING ON SITE. ENDORSED TO INCOMING SHIFT FOR JAEL. BED LOCKED AND IN LOW POSITION. BILATERAL UPPER SIDE RAILS UP AND LOCKED. CALL LIGHT WITHIN EASY REACH
[2018-07-09 20:00] VITALS: BP 123/89
--- NOTE | 2018-07-09 21:25 | NUR ---
receive report from shift nurse manager rn pt a/ox4, stable, respiration even and unlabored. safety measures in place. will continue to monitor.
--- NOTE | 2018-07-09 21:40 | NUR ---
PT IN BED, A/O X 4 VERBALLY RESPONSIVE. NO DISTRESS, NO SOB NOTED, INCENTIVE SPIROMETER ENCOURAGED. IV SITE ON RIGHT WRIST INTACT AND PATENT, NO S/S OF INFILTRATION NOTED AT THIS TIME. IV ATB INFUSING AT THIS TIME. NO C/O PAIN OR DISCOMFORT AT THIS TIME. AMBULATORY. COLOSTOMY IS INTACT. ALL NEEDS ATTENDED AND MET. CALL LIGHT WITHIN REACH. ENDORSED TO WILDA SERRANO ACCORDINGLY.
[2018-07-10] MEDS: VANCOMYCIN 0.75 GM in IV D5W 250 ML IV SCH ×3 (01:59→17:59)
[2018-07-10] MEDS: oxyCODONE HCL SR 20MG TAB.SR.12H PO SCH ×2 (03:00→15:00)
[2018-07-10] MEDS: IPRATROPIUM NEB FS 0.5 MG/2.5 ML AMPUL.NEB NEB SCH ×6 (03:12→23:30)
[2018-07-10] MEDS: ALBUTEROL FS 2.5 MG/3 ML VIAL.NEB NEB SCH ×6 (03:12→23:30)
[2018-07-10] MEDS: CYCLOBENZAPRINE 10 MG TABLET PO PRN ×3 (03:29→16:32)
[2018-07-10] MEDS: MEROPENEM 1 G in IV NS 0.9% 100 ML IV SCH ×3 (04:42→20:32)
[2018-07-10] MEDS: HYDROMORPHONE 1 MG/1 ML DISP.SYRIN IV PRN ×3 (04:46→17:47)
--- NOTE | 2018-07-10 06:06 | NUR ---
MS RN CLOSING NOTES PT COMFORTABLY ASLEEP AND EASILY AWAKEN, STABLE, NOT IN DISTRESS. TOLERATING ROOM AIR 99%. RESPIRATION EVEN AND UNLABORED. KEPT CLEAN AND DRY AND COMFORTABLE, ALL NURSING CARE RENDERED. NEEDS ATTENDED AND ANTICIPATED. GOOD SKIN CARE PROVIDED. NO COMPLAIN OF PAIN AT THIS TIME. ON LOW BED AT ALL TIMES TO ENSURE SAFETY. SAFE HAZARD FREE ENVIRONMENT PROVIDED. CALL LIGHT WITHIN EASY TO REACH. WILL ENDORSE NEXT SHIFT CONTINUITY OF CARE.
[2018-07-10 06:29] LABS: CALCIUM, SERUM 8.4 mg/dL (8.5-10.1); POTASSIUM 3.9 mmol/L (3.5-5.1)
--- NOTE | 2018-07-10 07:29 | NUR ---
MS RN OPENING NOTES RECEIVED PATIENT IN STABLE CONDITION. IN NO APPARENT DISTRESS. BEDSIDE RAILS ARE UPX2. BED IS LOCKED AND LOWERED. CALL LIGHT IS WITHIN REACH. IV LINE IS INTACT AND PATENT. WILL CONTINUE TO MONITOR PATIENT.
[2018-07-10 08:00] VITALS: BP 131/94
[2018-07-10] MEDS: DOCUSATE SODIUM 100 MG CAPSULE PO SCH ×2 (08:18→16:32)
[2018-07-10] MEDS: PANTOPRAZOLE 40 MG TABLET.DR PO SCH (08:18)
[2018-07-10 08:23] LABS: BASOPHILS % (AUTO) 0.2 % (0.0-2.0); EOSINOPHILS % (AUTO) 2.1 % (0.0-6.0); HEMATOCRIT 36 % (39-51); HEMOGLOBIN 11.5 g/dL (13.5-17.5); LYMPHOCYTES # (AUTO) 1.3 /CMM (0.8-4.8); LYMPHOCYTES % (AUTO) 10.7 % (20.0-44.0); MEAN CORPUSCULAR HGB CONC 32 g/dl (31.0-36.0); MEAN CORPUSCULAR VOLUME 90 fL (80-96); MONOCYTES # (AUTO) 1.2 /CMM (0.1-1.30); MONOCYTES % (AUTO) 10.1 % (2.0-12.0); NEUTROPHILS # (AUTO) 9.2 /CMM (1.8-8.9); NEUTROPHILS % (AUTO) 76.9 % (43.0-81.0); PLATELET COUNT (AUTO) 738 /CMM (150-450); RDW COEFFICIENT OF VARIATION 13.4 (11.5-15.0); RED BLOOD CELL COUNT(AUTO) 3.95 MIL/uL (4.5-6.0); WHITE BLOOD COUNT (AUTO) 11.9 K/uL (4.3-11.0)
--- NOTE | 2018-07-10 13:02 | NUR ---
INFORMED DR. MCNEAL REGARDING DISCHARGE ORDER. DR. MCNEAL HAS NOT APPROVED DISCHARGE YET. Addendum: 07/10/18 at 1853 by JACQUELYN JONES RN INFORMED DR. HERMINIA WRIGHT
[2018-07-10] MEDS: HYDROCODONE/APAP 10/325MG 1 EA TABLET PO PRN (15:01)
[2018-07-10] MEDS: FLUCONAZOLE IN NS,PREMIX 400 MG in PREMIX 1 EA IV SCH ×2 (15:22)
[2018-07-10 16:00] VITALS: BP 138/79
--- NOTE | 2018-07-10 18:28 | NUR ---
MS RN CLOSING NOTES PATIENT IS IN STABLE CONDITION. IN NO APPARENT DISTRESS. BEDSIDE RAILS ARE UPX2. BED IS LOCKED AND LOWERED. CALL LIGHT IS WITHIN REACH. IV LINE IS INTACT AND PATENT. ALL NEEDS WERE MET. WILL ENDORSE CARE TO TRANSFER CAR OPERATOR DRIER NURSE FOR JAEL.
--- NOTE | 2018-07-10 19:20 | NUR ---
RN NOTES RECEIVED PT OUT OF BED SITTING IN THE CHAIR. PT ALERT AND ORIENTED X4, ON ROOM AIR AND TOLERATED WELL. PT VERBALIZED OF TOLERABLE PAIN ON HIS LOWER BACK 4/10. CURRENT DIET TOLERATED WELL, DENIES NAUSEA AND VOMITING. COLOSTOMY INTACT AND WORKING WELL. GENESIS DRAIN INTACT WITH SERO SANGUINOUS OUTPUT NOTED. IV ACCESS ON LEFT HAND PATENT AND INTACT. SAFETY MEASURES AND FALL PRECAUTION OBSERVED. PLAN OF CARE DISCUSSED WITH THE PT AND VERBALIZED UNDERSTANDING. WILL CONTINUE TO MONITOR PT.
[2018-07-10 20:00] VITALS: BP 126/65
[2018-07-10 22:00] VITALS: BP 126/65
[2018-07-11] MEDS: HYDROCODONE/APAP 10/325MG 1 EA TABLET PO PRN (01:42)
--- NOTE | 2018-07-11 01:42 | NUR ---
RN NOTES PT COMPLAINS 7/10 PAIN ON HIS LOWER BACK, NORCO 10/325 MG TAB GIVEN PO. WILL CONTINUE TO MONITOR PT.
[2018-07-11] MEDS: VANCOMYCIN 0.75 GM in IV D5W 250 ML IV SCH ×2 (01:43→10:39)
[2018-07-11] MEDS: IPRATROPIUM NEB FS 0.5 MG/2.5 ML AMPUL.NEB NEB SCH ×6 (02:42→23:28)
[2018-07-11] MEDS: ALBUTEROL FS 2.5 MG/3 ML VIAL.NEB NEB SCH ×6 (02:42→23:28)
[2018-07-11] MEDS: oxyCODONE HCL SR 20MG TAB.SR.12H PO SCH ×2 (03:00→15:00)
[2018-07-11] MEDS: MEROPENEM 1 G in IV NS 0.9% 100 ML IV SCH ×3 (04:51→20:16)
[2018-07-11 06:36] LABS: CALCIUM, SERUM 8.9 mg/dL (8.5-10.1); POTASSIUM 4.9 mmol/L (3.5-5.1)
--- NOTE | 2018-07-11 06:48 | NUR ---
RN NOTES PT PREFERS TO SLEEP IN THE CHAIR BECAUSE OF LOWER BACK PAIN. CURRENT DIET TOLERATED WELL, NO EPISODE OF NAUSEA AND VOMITING. COLOSTOMY INTACT AND WORKING WELL, PT ABLE EMPTY COLOSTOMY. GENESIS DRAIN WITH MIN. OUTPUT. KEPT GEOVANNA AT TOLERABLE LEVEL. ALL NEEDS ATTENDED. WILL ENDORSE TO MORNING RN FOR CONTINUITY OF CARE.
[2018-07-11 08:00] VITALS: BP 112/84
[2018-07-11] MEDS: PANTOPRAZOLE 40 MG TABLET.DR PO SCH (08:39)
[2018-07-11] MEDS: DOCUSATE SODIUM 100 MG CAPSULE PO SCH ×2 (08:39→16:00)
[2018-07-11 16:00] VITALS: BP 170/90
--- NOTE | 2018-07-11 16:38 | NUR ---
PT REFUSED RESP TX AT THIS TIME, DUE TO HIGH B/P. NO S/S OF SOB NOTED. WILL CONT TO MONITOR Addendum: 07/11/18 at 1639 by ROB ULLOA RT Amended: Links added.
--- NOTE | 2018-07-11 16:44 | NUR ---
INFORMED DR MCNEAL AND DR. HERMINIA WRIGHT REGARDING URINE DRUG SCREEN RESULTS.
[2018-07-11] MEDS: HYDROMORPHONE 1 MG/1 ML DISP.SYRIN IV PRN (18:39)
--- NOTE | 2018-07-11 19:00 | NUR ---
MS RN OPENING NOTE Patient was seen sitting in chair AAOx4, breathing comfortably on RA with no SOB, and no signs of acute distress. Patient states that pain level is only 1-2/10, and is alleviated with position change such as sitting up vs. lying down. Colostomy noted on left side of abdomen; stoma is beefy red color. Drain noted on LLQ with scant serosanguineous drainage. Abdominal incisions from laparoscopic sx are closed, edges well-approximated, minimal bruising, no s/s of infection. ARABELLA IV is intact and patent. Patient has no immediate needs/concerns at this time. Call aranda is within reach. Will continue to monitor.
[2018-07-11 19:53] VITALS: BP 151/86
[2018-07-11 20:00] VITALS: BP 151/86
[2018-07-11] MEDS: CYCLOBENZAPRINE 10 MG TABLET PO PRN (22:15)
--- NOTE | 2018-07-11 22:15 | NUR ---
MS RN NOTE - Flexeril Patient requested Flexeril for right sided abdominal pain/muscle cramping and muscle pain the low back. Patient states this pain is worse when lying down, and patient wishes to try to sleep in bed. 10mg PO Flexeril was given per prn orders. Will continue to monitor.
[2018-07-12] MEDS: HYDROCODONE/APAP 10/325MG 1 EA TABLET PO PRN ×3 (01:02→21:06)
[2018-07-12] MEDS: oxyCODONE HCL SR 20MG TAB.SR.12H PO SCH ×2 (03:00→14:05)
[2018-07-12] MEDS: ALBUTEROL FS 2.5 MG/3 ML VIAL.NEB NEB SCH ×5 (03:12→20:37)
[2018-07-12] MEDS: IPRATROPIUM NEB FS 0.5 MG/2.5 ML AMPUL.NEB NEB SCH ×5 (03:12→20:37)
[2018-07-12] MEDS: MEROPENEM 1 G in IV NS 0.9% 100 ML IV SCH ×3 (04:48→20:57)
--- NOTE | 2018-07-12 06:14 | NUR ---
MS RN NOTE - [place] Patient requested [place] for low back pain and pain on his right side, aggravated by lying down, but patient is trying to sleep. PO [place] 10/325mg administered per prn orders.
--- NOTE | 2018-07-12 07:09 | NUR ---
MS RN CLOSING NOTE Patient is lying in bed AAOx4, breathing comfortably on RA with no SOB, and no signs of acute distress. Patient slept intermittently overnight, but had no complications. Pain has been well controlled this shift with position change and prn [facility]. All patient needs have been addressed this shift. Call aranda is within reach. Patient care endorsed to day shift RN.
[2018-07-12 08:00] VITALS: BP 115/72
[2018-07-12] MEDS: DOCUSATE SODIUM 100 MG CAPSULE PO SCH ×2 (09:42→16:14)
[2018-07-12] MEDS: PANTOPRAZOLE 40 MG TABLET.DR PO SCH (09:42)
--- NOTE | 2018-07-12 11:41 | NUR ---
PT REFUSED RESP TX AFTER BEING WOKEN UP. PT STATED HE WANTED TO CONT SLEEPING. NO S/S OF SOB NOTED. WILL CONT TO MONITOR Addendum: 07/12/18 at 1142 by ROB ULLOA RT Amended: Links added.
[2018-07-12 13:46] LABS: BASOPHILS % (AUTO) 0.5 % (0.0-2.0); EOSINOPHILS % (AUTO) 4.5 % (0.0-6.0); HEMATOCRIT 37 % (39-51); LYMPHOCYTES # (AUTO) 1.7 /CMM (0.8-4.8); MEAN CORPUSCULAR HGB CONC 33 g/dl (31.0-36.0); MEAN CORPUSCULAR VOLUME 88 fL (80-96); MONOCYTES # (AUTO) 0.9 /CMM (0.1-1.30); MONOCYTES % (AUTO) 9.9 % (2.0-12.0); NEUTROPHILS # (AUTO) 6.2 /CMM (1.8-8.9); NEUTROPHILS % (AUTO) 66.1 % (43.0-81.0); RDW COEFFICIENT OF VARIATION 12.5 (11.5-15.0); RED BLOOD CELL COUNT(AUTO) 4.19 MIL/uL (4.5-6.0); WHITE BLOOD COUNT (AUTO) 9.2 K/uL (4.3-11.0)
[2018-07-12 13:52] LABS: PLATELET COUNT (AUTO) 935 /CMM (150-450)
[2018-07-12 16:00] VITALS: BP 145/91
--- NOTE | 2018-07-12 19:41 | NUR ---
Patient evaluated for PICC insertion prior to discharge and noted that bilateral upper arm veins are non-compressible. Informed patient about possible DVT complications if PICC insertion is pursued. patient verbalized understanding, RN is aware.
--- NOTE | 2018-07-12 19:53 | NUR ---
MSRLizzie. PT PREPARED FOR D/C PER . PICC LINE UNSUITABLE. CASE MANAGEMENT CONTACTED [facility] AND OK'D PT TO LEAVE WITH PERIPHERAL IV. HOME INF CAN REPLACE NEEDED. PT THEN STATED HE HAS SWELLING AND TENDERNESS TO LEFT FOREARM FROM PREVIOUS IVC X5DAYS AGO. ALSO PT HAS SMALL HARD MASS IN VEIN IN UPPER RIGHT ARM WHERE PREVIOUS IVC WAS PLACE. MD FOSTER MADE AWARE AND OK'D TO STAY UNTIL AM FOR RV.
--- NOTE | 2018-07-12 20:00 | NUR ---
MS2/RN RECEIVE PATIENT AWAKE, ALERT ORIENTED, COMFORTABLE, NO C/O PAIN AT THIS TIME, NO DISTRESS NOTED, CALL LIGHT IN REACH. WILL MONITOR.
[2018-07-12 20:39] VITALS: BP 143/94
[2018-07-12] MEDS: HYDROMORPHONE 1 MG/1 ML DISP.SYRIN IV PRN (23:12)
[2018-07-13] MEDS: ALBUTEROL FS 2.5 MG/3 ML VIAL.NEB NEB SCH ×6 (00:18→20:21)
[2018-07-13] MEDS: IPRATROPIUM NEB FS 0.5 MG/2.5 ML AMPUL.NEB NEB SCH ×6 (00:18→20:21)
[2018-07-13] MEDS: CYCLOBENZAPRINE 10 MG TABLET PO PRN (02:46)
[2018-07-13] MEDS: oxyCODONE HCL SR 20MG TAB.SR.12H PO SCH ×2 (03:00→15:00)
--- NOTE | 2018-07-13 04:02 | NUR ---
RT NOTE PATIENT REFUSING TREATMENT. PRIMARY RN ELVIS NOTIFIED. NO SIGNS OF RESPIRATORY DISTRESS NOTED AT THIS TIME. SPO2 97% ON ROOM AIR. WILL CONTINUE TO MONITOR.
[2018-07-13] MEDS: MEROPENEM 1 G in IV NS 0.9% 100 ML IV SCH ×2 (04:55→12:22)
[2018-07-13] MEDS: HYDROMORPHONE 1 MG/1 ML DISP.SYRIN IV PRN ×2 (05:05→16:44)
--- NOTE | 2018-07-13 06:41 | NUR ---
MS2/RN PATIENT IS SLEEPING AT THIS TIME, EASILY AROUSABLE, APPEAR COMFORTABLE, NO SIGNS OF DISTRESS NOTED, CALL LIGHT IN REACH. ALL NEEDS ATTENDED AT THIS TIME. WILL CONTINUE TO MONITOR.
--- NOTE | 2018-07-13 07:23 | NUR ---
MS RN NOTES PATIENT RECEIVED RESTING INSIDE ROOM. AWAKE, ALERT AND ORIENTED. VERBALLY RESPONSIVE AND RESPONDS TO VERBAL AND TACTILE STIMULI. BREATHING EVEN AND UNLABORED. NO SOB OR ACUTE DISTRESS AT THIS TIME. PATIENT CALM AND RELAXED. NO CHANGES IN LOC NOTED AT THIS TIME. PATIENT DENIES ANY PAIN OR DISCOMFORT. IV INTACT AND PATENT, NO SWELLING OR BLEEDING NOTED ON SITE. WILL CONTINUE TO MONITOR. BED LOCKED AND IN LOW POSITION. BILATERAL UPPER SIDE RAILS UP AND LOCKED. CALL LIGHT WITHIN EASY REACH
[2018-07-13 08:00] VITALS: BP 143/99
[2018-07-13] MEDS: DOCUSATE SODIUM 100 MG CAPSULE PO SCH ×2 (08:42→16:43)
[2018-07-13] MEDS: PANTOPRAZOLE 40 MG TABLET.DR PO SCH (08:42)
[2018-07-13 16:00] VITALS: BP 121/70
--- NOTE | 2018-07-13 19:29 | NUR ---
MS RN NOTES PATIENT RESTING INSIDE ROOM. AWAKE, ALERT AND ORIENTED X 4. VERBALLY RESPONSIVE AND RESPONDS TO VERBAL AND TACTILE STIMULI. BREATHING EVEN AND UNLABORED. NO SOB OR ACUTE DISTRESS. DENIES ANY PAIN OR DISCOMFORT. NO CHANGES IN LOC NOTED. PATIENT CALM AND RELAXED. IV INTACT AND PATENT. PATIENT FOR DISCHARGE TO HOME TODAY. DR. FELIX AWARE OF PATIENT DISCHARGING WITH IV IN PLACE AND GAVE OK. PATIENT AWARE AND VERBALIZED UNDERSTANDING. ENDORSED TO INCOMING SHIFT FOR JAEL. BED LOCKED AND IN LOW POSITION. BILATERAL UPPER SIDE RAILS UP AND LOCKED. CALL LIGHT WITHIN EASY REACH
--- NOTE | 2018-07-13 19:30 | NUR ---
MS RN NOTES RECEIVED AMBULATING IN THE HALLWAY,A/O X4,AWAITING FOR DUPLEX STUDY ON BOTH UPPER EXTREMITIES DUE TO PAIN AND SWELLING.WITJ SALINE LOCK RIGHT UPPER ARM FOR MEDS.COLOSTOMY BAG IN PLACE,EMPTY AT THIS TIME.CALL LIGHT IN REACH NEEDS ANTICIPATED.
[2018-07-13 20:00] VITALS: BP 130/88
--- NOTE | 2018-07-13 20:00 | NUR ---
MS RN NOTES DUPLEX U/S ON BOTH ARMS WAS DONE AND TURNS OUT TO BE NEGATIVE FOR DVT.PATIENT READY FOR D/C HOME.ALL [employer] WAS SIGNED AND GIVEN COPY.
[2018-07-13] MEDS: HYDROCODONE/APAP 10/325MG 1 EA TABLET PO PRN (20:40)
--- NOTE | 2018-07-13 20:40 | NUR ---
MS RN NOTES C/O ABDOMINAL PAIN 8/10 ON PAIN SCALE.MEDICATED WITH NORCO 10/325MG 1 TAB PO ORDERED FOR SEVERE PAIN
--- NOTE | 2018-07-13 21:08 | NUR ---
MS RN NOTES DISCHARGE HOME WITH RIGHT UPPER ARM SALINE FOR HOME HEALTH IV ANTIBIOTICS ORDERED BY MD.
--- NOTE | 2018-07-13 21:08 | NUR ---
MS RN NOTES BICYCLE MECHANIC BY RELATIVE IN STABLE CONDITION,WITH PRIVATE TRANSPORTATION
== END 2018-07-13 21:08 | disposition home or self-care (01) | DRG 710 ==
LOC: ER 08:01 → TELE 09:47 → MED 06-29 20:58 → MEDSG2 07-08 04:26 → UNDODISIN 07-12 17:09
PROVIDERS: ADMIT Registered Nurse; ATTEND Registered Nurse
PROC: 0DTJ4ZZ Resection of Appendix, Percutaneous Endoscopic Approach (ICD-10-PCS; principal; 2018-06-26 10:30)
PROC: 0D1N0Z4 Bypass Sigmoid Colon to Cutaneous, Open Approach (ICD-10-PCS; 2018-06-26 10:30)
PROC: 0DTN0ZZ Resection of Sigmoid Colon, Open Approach (ICD-10-PCS; 2018-06-26 10:30)
DX: A41.89 Other specified sepsis (principal); J96.01 Acute respiratory failure with hypoxia; K57.21 Diverticulitis of large intestine with perforation and abscess with bleeding; K66.8 Other specified disorders of peritoneum; K56.7 Ileus, unspecified; I10 Essential (primary) hypertension; R73.9 Hyperglycemia, unspecified; F12.929 Cannabis use, unspecified with intoxication, unspecified; F32.9 Major depressive disorder, single episode, unspecified; F43.23 Adjustment disorder with mixed anxiety and depressed mood
CPT/HCPCS: 36415; 71045-TC; 71260-TC; 75989; 75989-TC; 80048-TC; 80053-TC; 80061-TC; 80076-TC; 80202-TC; 80305; 81000-TC; 83605-TC; 83690-TC; 83735-TC; 84100-TC; 84153-TC; 84154-TC; 84443-TC; 84484-TC; 85025-TC; 85610-TC; 85730-TC; 86850-TC; 87040-TC; 87070-TC; 87081-TC; 87086-TC; 88304-TC; 88307-TC; 89051-TC; 94760-TC; A4216; A4362; A6253; A6402; A6403; C1751; C9113; J0330; J1100; J1170; J1450; J1885; J1940; J2175; J2185; J2250; J2310; J2405; J2543; J2704; J2930; J3010; J3370; J3475; J3480; J3490; J7030; J7040; J7050; J7060; J7120; Q9967; Z7610

== ENCOUNTER 2018-07-15 13:38 | Outpatient (CLI) | payer MEDICAID ==
[~2018-07-15 13:38] MED LIST: ACET325T53 PO; DOCU-141 PO; PANT40TA2 PO
[2018-07-15 14:17] VITALS: BP 144/98
== END 2018-07-15 23:59 | disposition home or self-care (01) ==
LOC: MSC 13:38
PROVIDERS: ATTEND Internal Medicine
DX: Z51.89 Encounter for other specified aftercare (principal); G89.18 Other acute postprocedural pain; K57.90 Diverticulosis of intestine, part unspecified, without perforation or abscess without bleeding